=== PATIENT | male | born 1980 | race Caucasian/White ===

== ENCOUNTER 2016-12-06 13:23 | Emergency (ER) | payer BC ==
[2016-12-06 15:27] VITALS: BP 201/113
[2016-12-06] MEDS ORDERED: Cyclobenzaprine 10 MG Tab PO ONE (17:08)
[2016-12-06] MEDS ORDERED: Naproxen 500 MG Tab PO ONE (17:08)
--- NOTE | 2016-12-08 16:13 | EDM.PDOC ---
Scribed by Josiane Renteria 12/06/16 [id number] for Morro Lo MD ED HPI Trauma - General Chief Complaint: Upper Extremity Injury/Pain Stated Complaint: TORE RIGHT BICEP ? Time Seen by Provider: 12/06/16 13:36 Source: Reports: Patient, RN, RN notes reviewed History Limitations: Reports: No limitations - History of Present Illness INITIAL COMMENTS - FREE TEXT/NARRATIVE: Around 12:30 this afternoon he was playing outside and reached up and tried to grab someones shirt and he heard a pop. Pain is minimal 1-2/10. He did try Ibuprofen, which helped minimally. Pain is located in the right biceps area and pain is exacerbated when lifting straight. The family member noted the right bicep area looks different than the left. Symptom Onset Date: 12/06/16 Occurred When: just prior to arrival Occurred Where: home Severity: mild Pain/Injury Location: Reports: upper extremity, right Consciousness: Reports: no loss of consciousness Associated Symptoms: Reports: no other symptoms Allergies/ADRs: Allergies No Known Allergies Allergy (Verified 12/06/16 15:27) Home Medications: Ambulatory Orders Lisinopril/Hydrochlorothiazide [Lisinopril-Hctz 10-12.5 mg Tab] 1 each PO DAILY 08/07/13 [Confirmed 12/06/16] amLODIPine [Norvasc] 5 mg PO DAILY 09/26/15 [Confirmed 12/06/16] metFORMIN HCl [Metformin HCl] 1 mg PO DAILY 09/26/15 [Confirmed 12/06/16] Past Medical History Cardiovascular History: Reports: Hypertension Respiratory History: Reports: None Gastrointestinal History: Reports: None Genitourinary History: Reports: None Endocrine/Metabolic History: Reports: Diabetes, type II Immunologic History: Reports: None - Infectious Disease History Infectious Disease History: Reports: None - Past Surgical History HEENT Surgical History: Reports: Tonsillectomy Musculoskeletal Surgical History: Reports: Other (see below) Other Musculoskeletal Surgeries/Procedures:: left knee pain for past week. Worse today Social & Family History - Family History Family Medical History: Noncontributory - Tobacco Use Smoking Status *Q: Never Smoker Years of Tobacco use: 10 Used Tobacco, but Quit: Yes Month Tobacco Last Used: July 2005 Second Hand Smoke Exposure: No - Recreational Drug Use Recreational Drug Use: No - Living Situation & Occupation Living situation: Reports: , with family Occupation: employed Review of Systems - Review of Systems Review Of Systems: ROS reveals no pertinent complaints other than HPI. Trauma Exam - Physical Exam Exam: See Below Exam Limited By: No limitations Head: Reports: atraumatic, normocephalic Eyes: bilateral eye: normal inspection Ears: Reports: normal external exam, normal canal, hearing grossly normal, normal TMs Nose: Reports: normal inspection, normal mucousa, no blood Throat/Mouth: Reports: Normal inspection, Normal lips, Normal teeth, Normal gums , Normal oropharynx, Normal voice, No airway compromise Neck: Reports: non-tender, full range of motion, normal alignment, normal inspection Respiratory Exam: Reports: no respiratory distress, lungs clear, normal breath sounds Cardiovascular: Reports: normal peripheral pulses, regular rate, rhythm, no edema, no gallop, no JVD, no murmur, no rub GI/Abdominal: Reports: normal bowel sounds, soft, non tender, no organomegaly, no distention, no abnormal bruit, no mass Back: Reports: full range of motion, normal inspection, non-tender Extremities: Reports: pain with movement (pain wtih flexion of the arm with resistance. ), other (depression noted on right upper arm distal to the humerus area. ) Neurologic: Reports: telephone interviewer II-XII nml as tested, no motor/sensory deficits, alert , normal mood/affect, oriented x 3 Skin: Reports: Normal color, Warm/dry Course - Vital Signs Last Recorded V/S: Last Vital Signs Temp 36.8 C 12/06/16 14:00 Pulse 84 12/06/16 14:00 Resp 18 12/06/16 14:00 BP 201/113 H 12/06/16 14:00 Pulse Ox 98 12/06/16 14:00 - Orders/Labs/Meds Meds: Medications Discontinued Medications Generic Name Dose Route Start Last Admin Trade Name Freq PRN Reason Stop Dose Admin Cyclobenzaprine HCl 10 mg 12/06/16 17:08 12/06/16 17:15 Flexeril PO 12/06/16 17:09 10 mg ONETIME ONE Administration Naproxen 500 mg 12/06/16 17:08 12/06/16 17:15 Naprosyn PO 12/06/16 17:09 500 mg ONETIME ONE Administration - Radiology Interpretation Free Text/Narrative:: Right humerus: No acute findings. Uncomplicated humeral hardware per rad report. Departure - Departure Time of Disposition: 17:15 Disposition: Home, Self-Care 01 Condition: good Clinical Impression: Biceps tendon tear Instructions: Biceps Tendon Disruption (Proximal) With [facility] Forms: ED Department Discharge Additional Instructions: Follow up with Dr. Cantor later this week for recheck and possible further work up. Naprosyn 500mg. Flexeril 10mg. Continue sling. Activity as tolerated. Work note given to excuse him for one week. I have read and agree with the documentation that has been completed regarding this visit. By signing this record, I attest that the documentation was completed in my physical presence and is an accurate record of the encounter.
== END 2016-12-06 17:22 | disposition home or self-care (01) ==
LOC: DL.ED 13:23
DX: S46.211A Strain of muscle, fascia and tendon of other parts of biceps, right arm, initial encounter (principal); I10 Essential (primary) hypertension; E11.9 Type 2 diabetes mellitus without complications; Z79.84 Long term (current) use of oral hypoglycemic drugs; Z79.899 Other long term (current) drug therapy; Z98.890 Other specified postprocedural states; X58.XXXA Exposure to other specified factors, initial encounter; Y92.009 Unspecified place in unspecified non-institutional (private) residence as the place of occurrence of the external cause
CPT/HCPCS: 73060; 99283; A9270

== ENCOUNTER 2018-07-29 00:26 | Emergency (ER) | payer BC, OTHER ==
[2018-07-29] MEDS ORDERED: Lidocaine 1% 30 ML SDV INJECT ONE (00:48)
[2018-07-29] MEDS ORDERED: Bacitracin Oint 1 GM U/D Packet TOP ONE (00:49)
[2018-07-29] MEDS ORDERED: cloNIDine 0.1 MG Tab PO ONE (00:54)
[2018-07-29] MEDS ORDERED: Diphtheria,Pertussis(Acell),Tetanus Vaccine 0.5 ML SDV IM ONE (00:55)
--- NOTE | 2018-07-29 01:26 | EDM.PDOC ---
ED HPI GENERAL MEDICAL PROBLEM - General Chief Complaint: Upper Extremity Injury/Pain Stated Complaint: PIECE OF STEEL IN IZABELLAUB [id number] Time Seen by Provider: 07/29/18 00:50 Source of Information: Reports: Patient, RN, RN Notes Reviewed History Limitations: Reports: No Limitations - History of Present Illness INITIAL COMMENTS - FREE TEXT/NARRATIVE: Pt to ER with c/o steel sliver in the pad of the left thumb. Patient states he was working on a bucket on a skid steer at work when he got a piece of steel stuck in the thumb. He states he was able to get part of it out but there is still a piece deep in the finger that he cannot get at. Patient states he is unsure of when his last Tetanus vaccination was but states "it was a long time ago". Upon arrival pt BP is elevated as well. Patient states he did not take his Lisinopril yesterday. Onset: Today, Sudden Left 1-Thumb Pain Score (Numeric/FACES): 3 - Related Data Allergies Allergy/AdvReac Type Severity Reaction Status Date / Time No Known Allergies Allergy Verified 07/29/18 00:43 Home Meds: Home Meds Lisinopril/Hydrochlorothiazide [Lisinopril-Hctz 10-12.5 mg Tab] 1 each PO DAILY 08/07/13 [History] amLODIPine [Norvasc] 5 mg PO DAILY 09/26/15 [History] metFORMIN HCl [Metformin HCl] 1 mg PO DAILY 09/26/15 [History] Past Medical History Cardiovascular History: Reports: Hypertension Respiratory History: Reports: None Gastrointestinal History: Reports: None Genitourinary History: Reports: None Endocrine/Metabolic History: Reports: Diabetes, Type II Immunologic History: Reports: None - Infectious Disease History Infectious Disease History: Reports: None - Past Surgical History HEENT Surgical History: Reports: Adenoidectomy, Tonsillectomy Musculoskeletal Surgical History: Reports: Other (See Below) Other Musculoskeletal Surgeries/Procedures:: right torn bicep repair and fx repair. Social & Family History - Family History Family Medical History: Noncontributory - Tobacco Use Smoking Status *Q: Never Smoker - Caffeine Use Caffeine Use: Reports: Soda - Recreational Drug Use Recreational Drug Use: No - Living Situation & Occupation Living situation: Reports: , with Family Occupation: Employed Review of Systems - Review of Systems Review Of Systems: ROS reveals no pertinent complaints other than HPI. ED EXAM, GENERAL - Physical Exam Exam: See Below Exam Limited By: No Limitations General Appearance: Alert, WD/WN, No Apparent Distress Eye Exam: Bilateral Eye: EOMI, Normal Inspection Ears: Normal External Exam, Hearing Grossly Normal Nose: Normal Inspection Throat/Mouth: Normal Inspection, Normal Voice, No Airway Compromise Head: Atraumatic, Normocephalic Neck: Normal Inspection, Supple, Non-Tender, Full Range of Motion Respiratory/Chest: No Respiratory Distress, Lungs Clear, Normal Breath Sounds, No Accessory Muscle Use, Chest Non-Tender Cardiovascular: Normal Peripheral Pulses, Regular Rate, Rhythm, No Edema, No Gallop, No JVD, No Murmur, No Rub Peripheral Pulses: 2+: Radial (L), Radial (R) GI/Abdominal: Normal Bowel Sounds, Soft, Non-Tender (Male) Exam: Deferred Rectal (Males) Exam: Deferred Back Exam: Normal Inspection, Full Range of Motion, NT Extremities: Normal Inspection, Normal Range of Motion, Non-Tender, Normal Capillary Refill, No Pedal Edema Neurological: Alert, Oriented, CN II-XII Intact, Normal Cognition, Normal Gait, Normal Reflexes, No Motor/Sensory Deficits Psychiatric: Normal Affect, Normal Mood Skin Exam: Warm, Dry, Normal Color, No Rash, Other (Open area to the pad of the left thumb where the patient has been digging to get sliver out ) Lymphatic: No Adenopathy ED TRAUMA EXTREMITY PROCEDURES - Foreign Body Removal Indication:: Steel sliver in the left thumb Consent Obtained: Patient Performing Doctor:: Caryl Nguyen Anesthesia Type: Local Complications:: No Course - Vital Signs Last Recorded V/S: Last Vital Signs Temp 98.4 F 07/29/18 00:43 Pulse 102 H 07/29/18 00:43 Resp 18 07/29/18 00:43 BP 172/95 H 07/29/18 02:10 Pulse Ox 98 07/29/18 00:43 - Orders/Labs/Meds Orders: Active Orders 24 hr Category Date Time Status Vaccines to be Administered [RC] PER UNIT ROUTINE Care 07/29/18 00:55 Active Fingers Thumb Lt FA [CR] Urgent Exams 07/29/18 00:36 Taken Meds: Medications Discontinued Medications Generic Name Dose Route Start Last Admin Trade Name Freq PRN Reason Stop Dose Admin Bacitracin 1 dose 12/27/18 00:49 07/29/18 01:07 Bacitracin Oint 1 Gm TOP 07/29/18 00:50 1 dose ONETIME ONE Administration Clonidine HCl 0.1 mg 07/29/18 00:54 07/29/18 01:06 Catapres PO 07/29/18 00:55 0.1 mg ONETIME ONE Administration Diphtheria/Tetanus/Acell Pertussis 0.5 ml 07/29/18 00:55 07/29/18 01:03 Adacel IM 07/29/18 00:56 0.5 ml .ONCE ONE Administration Lidocaine HCl 30 ml 07/29/18 00:48 07/29/18 01:02 Xylocaine-Mpf 1% INJECT 07/29/18 00:49 30 ml ONETIME ONE Administration Departure - Departure Time of Disposition: 02:15 Disposition: Home, Self-Care 01 Condition: Fair Clinical Impression: Sliver Hypertension Qualifiers: Hypertension type: unspecified Qualified Code(s): I10 - Essential (primary) hypertension - Discharge Information *PRESCRIPTION DRUG MONITORING PROGRAM REVIEWED*: No *COPY OF PRESCRIPTION DRUG MONITORING REPORT IN PATIENT NICKY: No Instructions: Hypertension, [id number] Referrals: Regina Love MD [Primary Care Provider] - Forms: ED Department Discharge Additional Instructions: Keep thumb covered with bandaid and clean Take medications as prescribed Follow up with your primary care facility - My Orders Last 24 Hours: My Active Orders 07/29/18 00:36 Fingers Thumb Lt FA [CR] Urgent 07/29/18 00:55 Vaccines to be Administered [RC] PER UNIT ROUTINE - Assessment/Plan Last 24 Hours: My Active Orders 07/29/18 00:36 Fingers Thumb Lt FA [CR] Urgent 07/29/18 00:55 Vaccines to be Administered [RC] PER UNIT ROUTINE
[2018-07-29 02:11] VITALS: BP 172/95
== END 2018-07-29 02:15 | disposition home or self-care (01) ==
LOC: DL.ED 00:26
DX: S60.352A Superficial foreign body of left thumb, initial encounter (principal); I10 Essential (primary) hypertension; E11.9 Type 2 diabetes mellitus without complications; Z79.84 Long term (current) use of oral hypoglycemic drugs; W45.8XXA Other foreign body or object entering through skin, initial encounter; Z23 Encounter for immunization; F17.290 Nicotine dependence, other tobacco product, uncomplicated
CPT/HCPCS: 73140; 90471; 90715; 99283; A9270

== ENCOUNTER 2020-04-05 17:15 | Emergency (ER) | payer BC ==
[2020-04-05] MEDS ORDERED: Ondansetron 4 MG Tab.DIS PO ONE (17:16)
[2020-04-05] MEDS ORDERED: Ondansetron 4 MG/2 ML SDV IV ONE (17:34)
[2020-04-05] MEDS ORDERED: Sodium Chloride 0.9% 10 ML Syringe FLUSH PRN (17:34)
[2020-04-05] MEDS ORDERED: Ketorolac 30 MG/ML SDV IVPUSH ONE (17:34)
[2020-04-05] MEDS ORDERED: Sodium Chloride 0.9% 1,000 ML IV ONE (17:34)
[2020-04-05 17:52] VITALS: BP 173/94; PULSE 117
--- NOTE | 2020-04-05 18:13 | EDM.PDOC ---
ED HPI GENERAL MEDICAL PROBLEM - General Chief Complaint: Gastrointestinal Problem Stated Complaint: NAUSEA,HEADACHE,VOMITING,BODY ACHE [id number] Time Seen by Provider: 04/05/20 17:45 Source of Information: Reports: Patient, RN, RN Notes Reviewed History Limitations: Reports: No Limitations - History of Present Illness INITIAL COMMENTS - FREE TEXT/NARRATIVE: Pt presents to ER by POV with c/o cough, N/V/D, abdominal pain, chills, muscle aches, since 0100HRS this morning. Has traveled to [facility] this past week and is scared that he may have COVID. Denies shortness of breath, chest pain, or difficulty breathing. Onset: Today Onset Date: 04/05/20 Onset Time: 01:00 Duration: Constant Location: Reports: Abdomen, Generalized Quality: Reports: Ache Severity: Moderate Improves with: Reports: None Worsens with: Reports: None Context: Reports: Sick Contact (Unknown) Associated Symptoms: Reports: No Other Symptoms Middle Abdominal Pain Score (Numeric/FACES): 4 - Related Data Allergies Allergy/AdvReac Type Severity Reaction Status Date / Time No Known Allergies Allergy Verified 04/05/20 17:37 Home Meds: Home Meds Lisinopril/Hydrochlorothiazide [Lisinopril-Hctz 10-12.5 mg Tab] 1 each PO DAILY 08/07/13 [History] amLODIPine [Norvasc] 10 mg PO BEDTIME 09/26/15 [History] metFORMIN HCl [Metformin HCl] 1,000 mg PO BID 09/26/15 [History] Glimepiride 2 mg PO DAILY 04/05/20 [History] atorvaSTATin [Lipitor] 20 mg PO DAILY 04/05/20 [History] Past Medical History Cardiovascular History: Reports: High Cholesterol, Hypertension Respiratory History: Reports: None Gastrointestinal History: Reports: None Genitourinary History: Reports: None Neurological History: Reports: None Psychiatric History: Reports: None Endocrine/Metabolic History: Reports: Diabetes, Type II, Obesity/BMI 30+ Hematologic History: Reports: None Immunologic History: Reports: None Oncologic (Cancer) History: Reports: None Dermatologic History: Reports: None - Infectious Disease History Infectious Disease History: Reports: Chicken Pox - Past Surgical History Head Surgeries/Procedures: Reports: None HEENT Surgical History: Reports: Adenoidectomy, Tonsillectomy Musculoskeletal Surgical History: Reports: Other (See Below) Other Musculoskeletal Surgeries/Procedures:: right torn bicep repair and fx repair. Social & Family History - Family History Family Medical History: Noncontributory - Tobacco Use Smoking Status *Q: Never Smoker Second Hand Smoke Exposure: No - Caffeine Use Caffeine Use: Reports: Coffee, Soda - Recreational Drug Use Recreational Drug Use: No - Living Situation & Occupation Living situation: Reports: , with Family Occupation: Employed ED ROS GENERAL - Review of Systems Review Of Systems: Comprehensive ROS is negative, except as noted in HPI. ED EXAM, GI/ABD - Physical Exam Exam: See Below Exam Limited By: No Limitations General Appearance: Alert, WD/WN, No Apparent Distress, Anxious Eyes: Bilateral: Normal Appearance Nose: Normal Inspection, Normal Mucosa, No Blood Throat/Mouth: Normal Inspection, Normal Lips, Normal Teeth, Normal Gums, Normal Oropharynx, Normal Voice, No Airway Compromise Head: Atraumatic, Normocephalic Neck: Normal Inspection, Supple, Non-Tender, Full Range of Motion Respiratory/Chest: No Respiratory Distress, Lungs Clear, Normal Breath Sounds, No Accessory Muscle Use, Chest Non-Tender Cardiovascular: Regular Rate, Rhythm, No Edema, Tachycardia GI/Abdominal Exam: Normal Bowel Sounds, Soft, Tender (Mild, generalized). No: Guarding, Rigid, Rebound (Male) Exam: Deferred Rectal (Males) Exam: Deferred Course - Vital Signs Last Recorded V/S: Last Vital Signs Temp 99.3 F 04/05/20 17:43 Pulse 117 H 04/05/20 17:43 Resp 24 H 04/05/20 17:43 BP 173/94 H 04/05/20 17:43 Pulse Ox 96 04/05/20 17:43 - Orders/Labs/Meds Orders: Active Orders 24 hr Category Date Time Status Peripheral IV Care [RC] . DIRECTED Care 04/05/20 17:34 Active CORONAVIRUS COVID-19 PCR PHL Routine Lab 04/05/20 17:52 Ordered CULTURE STREP A CONFIRMATION [RM] Stat Lab 04/05/20 17:35 Results STREP SCRN A RAPID W CULT CONF [RM] Stat Lab 04/05/20 17:35 Results Sodium Chloride 0.9% [Saline Flush] Med 04/05/20 17:34 Active 10 ml FLUSH ASDIRECTED PRN Isolation [COMM] Routine Oth 04/05/20 17:33 Active Peripheral IV Insertion Adult [OM.PC] Stat Oth 04/05/20 17:33 Ordered Medication Orders Sodium Chloride (Saline Flush) 10 ml FLUSH ASDIRECTED PRN PRN Reason: Keep Vein Open Last Admin: 04/05/20 18:08 Dose: 10 ml Documented by: RANDALL Labs: Laboratory Tests 04/05/20 04/05/20 04/05/20 Range/Units 17:42 17:42 17:42 WBC 14.4 H (5.0-10.0) 10^3/uL RBC 5.95 (4.6-6.2) 10^6/uL Hgb 17.8 (14.0-18.0) g/dL Hct 48.5 (40.0-54.0) % MCV 81.5 (80-100) fL MCH 29.9 (27.0-34.0) pg MCHC 36.7 H (33.0-35.0) g/dL Plt Count 257 (150-450) 10^3/uL Neut % (Auto) 89.0 H (42.2-75.2) % Lymph % (Auto) 6.2 L (20.5-50.1) % Crockett % (Auto) 4.6 (2-8) % Eos % (Auto) 0.1 L (1.0-3.0) % Baso % (Auto) 0.1 (0.0-1.0) % D-Dimer, Quantitative 117 (0-400) ng/mL Sodium 138 (136-145) mmol/L Potassium 3.3 L (3.5-5.1) mmol/L Chloride 101 (98-107) mmol/L Carbon Dioxide 24 (21-32) mmol/L Anion Gap 16.3 H (7-13) mEq/L BUN 12 (7-18) mg/dL Creatinine 1.09 (0.70-1.30) mg/dL Est Cr Clr Drug Dosing 89.19 mL/min Estimated GFR (MDRD) > 60 BUN/Creatinine Ratio 11.0 (No establ ref range) Glucose 285 H (74-99) mg/dL Lactic Acid (0.4-2.0) mmol/L Calcium 8.3 L (8.5-10.1) mg/dL Total Bilirubin 1.2 H (0.2-1.0) mg/dL AST 16 (15-37) U/L ALT 43 (16-63) U/L Alkaline Phosphatase 101 (46-116) U/L Total Protein 7.0 (6.4-8.2) g/dL Albumin 3.6 (3.4-5.0) g/dL Globulin 3.4 Albumin/Globulin Ratio 1.1 Amylase 18 L (25-115) U/L Lipase 71 L (73-393) U/L 04/05/20 Range/Units 17:42 WBC (5.0-10.0) 10^3/uL RBC (4.6-6.2) 10^6/uL Hgb (14.0-18.0) g/dL Hct (40.0-54.0) % MCV (80-100) fL MCH (27.0-34.0) pg MCHC (33.0-35.0) g/dL Plt Count (150-450) 10^3/uL Neut % (Auto) (42.2-75.2) % Lymph % (Auto) (20.5-50.1) % Crockett % (Auto) (2-8) % Eos % (Auto) (1.0-3.0) % Baso % (Auto) (0.0-1.0) % D-Dimer, Quantitative (0-400) ng/mL Sodium (136-145) mmol/L Potassium (3.5-5.1) mmol/L Chloride (98-107) mmol/L Carbon Dioxide (21-32) mmol/L Anion Gap (7-13) mEq/L BUN (7-18) mg/dL Creatinine (0.70-1.30) mg/dL Est Cr Clr Drug Dosing mL/min Estimated GFR (MDRD) BUN/Creatinine Ratio (No establ ref range) Glucose (74-99) mg/dL Lactic Acid 2.4 H* (0.4-2.0) mmol/L Calcium (8.5-10.1) mg/dL Total Bilirubin (0.2-1.0) mg/dL AST (15-37) U/L ALT (16-63) U/L Alkaline Phosphatase (46-116) U/L Total Protein (6.4-8.2) g/dL Albumin (3.4-5.0) g/dL Globulin Albumin/Globulin Ratio Amylase (25-115) U/L Lipase (73-393) U/L Meds: Medications Generic Name Dose Route Start Last Admin Trade Name Freq PRN Reason Stop Dose Admin Sodium Chloride 10 ml 04/05/20 17:34 04/05/20 18:08 Saline Flush FLUSH 10 ml ASDIRECTED PRN Administration Keep Vein Open Discontinued Medications Generic Name Dose Route Start Last Admin Trade Name Freq PRN Reason Stop Dose Admin Sodium Chloride 1,000 mls @ 999 mls/hr 04/05/20 17:34 04/05/20 18:06 Normal Saline IV 04/05/20 18:34 999 mls/hr .BOLUS ONE Administration Ketorolac Tromethamine 30 mg 04/05/20 17:34 04/05/20 18:06 Toradol IVPUSH 04/05/20 17:35 30 mg ONETIME ONE Administration Ondansetron HCl 4 mg 04/05/20 17:34 04/05/20 18:08 Zofran IV 04/05/20 17:35 4 mg ONETIME ONE Administration Departure - Departure Time of Disposition: 19:18 Disposition: Home, Self-Care 01 Condition: Good Clinical Impression: Suspected COVID-19 virus infection Nausea & vomiting Qualifiers: Vomiting type: unspecified Vomiting Intractability: non-intractable Qualified Code(s): R11.2 - Nausea with vomiting, unspecified - Discharge Information *PRESCRIPTION DRUG MONITORING PROGRAM REVIEWED*: Not Applicable *COPY OF PRESCRIPTION DRUG MONITORING REPORT IN PATIENT NICKY: Not Applicable Instructions: Prevent the Spread of COVID-19 if You Are Sick - CDC, COVID-19, Nausea and Vomiting, Adult Forms: ED Department Discharge Additional Instructions: Rx: Zofran 4mg Drink plenty of water. Self quarantine at home until your COVID test results are available, and for 14 days if confirmed COVID positive. Return to ER if your abdominal pain moves to the far right lower abdomen. Call 911 if you become short of breath or have difficulty breathing. Sepsis Event Note (ED) - Evaluation Sepsis Screening Result: No Definite Risk - Focused Exam Vital Signs: Vital Signs Temp Pulse Resp BP Pulse Ox 04/05/20 17:43 99.3 F 117 H 24 H 173/94 H 96 - My Orders Last 24 Hours: My Active Orders 04/05/20 17:33 Isolation [COMM] Routine Peripheral IV Insertion Adult [OM.PC] Stat 04/05/20 17:34 Peripheral IV Care [RC] . DIRECTED Sodium Chloride 0.9% [Saline Flush] 10 ml FLUSH ASDIRECTED PRN 04/05/20 17:35 CULTURE STREP A CONFIRMATION [RM] Stat STREP SCRN A RAPID W CULT CONF [RM] Stat 04/05/20 17:52 CORONAVIRUS COVID-19 PCR PHL Routine - Assessment/Plan Last 24 Hours: My Active Orders 04/05/20 17:33 Isolation [COMM] Routine Peripheral IV Insertion Adult [OM.PC] Stat 04/05/20 17:34 Peripheral IV Care [RC] . DIRECTED Sodium Chloride 0.9% [Saline Flush] 10 ml FLUSH ASDIRECTED PRN 04/05/20 17:35 CULTURE STREP A CONFIRMATION [RM] Stat STREP SCRN A RAPID W CULT CONF [RM] Stat 04/05/20 17:52 CORONAVIRUS COVID-19 PCR PHL Routine
[2020-04-05 18:22] LABS: ANION GAP 16.3 mEq/L (7-13); CHLORIDE,CL 101 mmol/L (98-107); SODIUM,NA 138 mmol/L (136-145)
[2020-04-05] MEDS ORDERED: Ondansetron 4 MG Tab.DIS ONE (19:18)
== END 2020-04-05 19:33 | disposition home or self-care (01) ==
LOC: DL.ED 17:15
DX: R11.2 Nausea with vomiting, unspecified (principal); E78.00 Pure hypercholesterolemia, unspecified; I10 Essential (primary) hypertension; E11.9 Type 2 diabetes mellitus without complications; E66.9 Obesity, unspecified; Z68.41 Body mass index [BMI] 40.0-44.9, adult; Z79.84 Long term (current) use of oral hypoglycemic drugs; Z20.828 Contact with and (suspected) exposure to other viral communicable diseases
CPT/HCPCS: 36415; 80053; 82150; 83605; 83690; 85025; 85379; 87081; 87430; 87804; 96361; 96374; 96375; 99284-25; A9270-GY; J1885; J2405; J7030; U0002

== ENCOUNTER 2021-05-18 16:05 | Emergency (ER) | payer BC ==
--- NOTE | 2021-05-18 16:23 | EDM.PDOC ---
ED HPI GENERAL MEDICAL PROBLEM - General Stated Complaint: 98.6 TEMP, COUGH, FATIGUE, VOMITING Time Seen by Provider: 05/18/21 16:22 Source of Information: Reports: Patient, RN, RN Notes Reviewed - History of Present Illness INITIAL COMMENTS - FREE TEXT/NARRATIVE: Sid is a 40 y/o male who presents to the ED via personal vehicle with complaints of fever, muscle aches, shortness of breath, and cough. The patient states his symptoms began five days ago and have progressively worsened in that time. Additionally, he notes nausea with vomiting. He has taken transient doses of acetaminophen and ibuprofen which have provided mild alleviation in symptoms. His TMax was 102.8 two days ago. He denies dizziness, vision changes, chest pain/pressure, palpitations, abdominal pain, diarrhea, and constipation. He denies tobacco, alcohol, or recreational drug use. - Related Data Allergies Allergy/AdvReac Type Severity Reaction Status Date / Time No Known Allergies Allergy Verified 05/18/21 16:31 Home Meds: Home Meds amLODIPine [Norvasc] 10 mg PO BEDTIME 09/26/15 [History] metFORMIN HCl [Metformin HCl] 1,000 mg PO BID 09/26/15 [History] atorvaSTATin [Lipitor] 20 mg PO DAILY 04/05/20 [History] Ascorbic Acid [Vitamin C with Sophy Hips] 1,000 mg PO DAILY 05/20/21 [History] Canagliflozin [Invokana] 300 mg PO DAILY 05/20/21 [History] Glimepiride 4 mg PO WITHBREAKFAST 05/20/21 [History] dexAMETHasone [Decadron] 6 mg PO DAILY 05/20/21 [History] Past Medical History Cardiovascular History: Reports: High Cholesterol, Hypertension Respiratory History: Reports: None Gastrointestinal History: Reports: None Genitourinary History: Reports: None Neurological History: Reports: None Psychiatric History: Reports: None Endocrine/Metabolic History: Reports: Diabetes, Type II, Obesity/BMI 30+ Hematologic History: Reports: None Immunologic History: Reports: None Oncologic (Cancer) History: Reports: None Dermatologic History: Reports: None - Infectious Disease History Infectious Disease History: Reports: Chicken Pox - Past Surgical History Head Surgeries/Procedures: Reports: None HEENT Surgical History: Reports: Adenoidectomy, Tonsillectomy Musculoskeletal Surgical History: Reports: Other (See Below) Other Musculoskeletal Surgeries/Procedures:: right torn bicep repair and fx repair. Social & Family History - Family History Family Medical History: No Pertinent Family History - Caffeine Use Caffeine Use: Reports: Coffee, Soda - Living Situation & Occupation Living situation: Reports: , with Family Occupation: Employed ED ROS GENERAL - Review of Systems Review Of Systems: Comprehensive ROS is negative, except as noted in HPI. ED EXAM, GENERAL - Physical Exam Exam: See Below Exam Limited By: No Limitations General Appearance: Alert, No Apparent Distress, Other (Ill-appearing middle- aged male) Eye Exam: Bilateral Eye: EOMI, Normal Inspection, PERRL (3mm) Ears: Normal External Exam, Normal Canal, Hearing Grossly Normal, Normal TMs Ear Exam: Bilateral Ear: Auricle Normal, Canal Normal, TM normal Nose: Normal Inspection, Normal Mucosa, No Blood Throat/Mouth: Normal Inspection, Normal Oropharynx, Normal Voice, No Airway Compromise Head: Atraumatic, Normocephalic Neck: Normal Inspection, Supple, Non-Tender, Full Range of Motion Respiratory/Chest: No Respiratory Distress, No Accessory Muscle Use, Chest Non- Tender, Decreased Breath Sounds, Rhonchi. No: Crackles, Rales, Wheezing, Stridor Cardiovascular: Normal Peripheral Pulses, Regular Rate, Rhythm, No Edema, No Gallop, No JVD, No Murmur, No Rub Peripheral Pulses: 2+: Radial (L), Radial (R), Dorsalis Pedis (L), Dorsalis Pedis (R) GI/Abdominal: Normal Bowel Sounds, Soft, Non-Tender, No Distention, No Abnormal Bruit, No Mass, Pelvis Stable (Male) Exam: Deferred Rectal (Males) Exam: Deferred Back Exam: Normal Inspection, Full Range of Motion Extremities: Normal Inspection, Normal Range of Motion, Non-Tender, No Pedal Edema, Normal Capillary Refill Neurological: Alert, Oriented, CN II-XII Intact, Normal Cognition, Normal Gait, No Motor/Sensory Deficits Psychiatric: Normal Affect, Normal Mood Skin Exam: Warm, Dry, Intact, Normal Color, No Rash. No: Cyanosis, Jaundice, Mottled, Pallor Lymphatic: No Adenopathy Course - Vital Signs Last Recorded V/S: Last Vital Signs Temp 100.4 F 05/18/21 16:32 Pulse 100 05/18/21 16:32 Resp 24 H 05/18/21 16:32 BP 137/89 05/18/21 16:32 Pulse Ox 97 05/18/21 16:32 - Orders/Labs/Meds Labs: Laboratory Tests 05/18/21 05/18/21 05/18/21 Range/Units 16:14 17:40 17:40 WBC 7.3 (5.0-10.0) 10^3/uL RBC 5.94 (4.6-6.2) 10^6/uL Hgb 17.9 (14.0-18.0) g/dL Hct 49.9 (40.0-54.0) % MCV 84.0 (80-100) fL MCH 30.1 (27.0-34.0) pg MCHC 35.9 H (33.0-35.0) g/dL Plt Count 166 D (150-450) 10^3/uL Neut % (Auto) 72.7 (42.2-75.2) % Lymph % (Auto) 19.3 L (20.5-50.1) % [place] % (Auto) 7.7 (2-8) % Eos % (Auto) 0.0 L (1.0-3.0) % Baso % (Auto) 0.3 (0.0-1.0) % Sodium 138 (136-145) mmol/L Potassium 3.2 L (3.5-5.1) mmol/L Chloride 98 (98-107) mmol/L Carbon Dioxide 29 (21-32) mmol/L Anion Gap 14.2 H (7-13) mEq/L BUN 21 H (7-18) mg/dL Creatinine 1.19 (0.70-1.30) mg/dL Est Cr Clr Drug Dosing TNP Estimated GFR (MDRD) > 60 BUN/Creatinine Ratio 17.6 (No establ ref range) Glucose 200 H (70-99) mg/dL Lactic Acid (0.4-2.0) mmol/L Calcium 7.6 L (8.5-10.1) mg/dL Total Bilirubin 0.7 (0.2-1.0) mg/dL AST 18 (15-37) U/L ALT 64 H (16-63) U/L Alkaline Phosphatase 92 (46-116) U/L C-Reactive Protein 10.1 H (0.0-0.9) mg/dL Total Protein 7.3 (6.4-8.2) g/dL Albumin 3.5 (3.4-5.0) g/dL Globulin 3.8 Albumin/Globulin Ratio 0.9 SARS-CoV-2 RNA (RANJIT) Positive H (NEGATIVE) 05/18/21 Range/Units 17:40 WBC (5.0-10.0) 10^3/uL RBC (4.6-6.2) 10^6/uL Hgb (14.0-18.0) g/dL Hct (40.0-54.0) % MCV (80-100) fL MCH (27.0-34.0) pg MCHC (33.0-35.0) g/dL Plt Count (150-450) 10^3/uL Neut % (Auto) (42.2-75.2) % Lymph % (Auto) (20.5-50.1) % [place] % (Auto) (2-8) % Eos % (Auto) (1.0-3.0) % Baso % (Auto) (0.0-1.0) % Sodium (136-145) mmol/L Potassium (3.5-5.1) mmol/L Chloride (98-107) mmol/L Carbon Dioxide (21-32) mmol/L Anion Gap (7-13) mEq/L BUN (7-18) mg/dL Creatinine (0.70-1.30) mg/dL Est Cr Clr Drug Dosing Estimated GFR (MDRD) BUN/Creatinine Ratio (No establ ref range) Glucose (70-99) mg/dL Lactic Acid 1.9 (0.4-2.0) mmol/L Calcium (8.5-10.1) mg/dL Total Bilirubin (0.2-1.0) mg/dL AST (15-37) U/L ALT (16-63) U/L Alkaline Phosphatase (46-116) U/L C-Reactive Protein (0.0-0.9) mg/dL Total Protein (6.4-8.2) g/dL Albumin (3.4-5.0) g/dL Globulin Albumin/Globulin Ratio SARS-CoV-2 RNA (RANJIT) (NEGATIVE) Meds: Medications Discontinued Medications Generic Name Dose Route Start Last Admin Trade Name Freq PRN Reason Stop Dose Admin Dexamethasone 6 mg 05/18/21 19:02 05/18/21 19:31 Dexamethasone 4 Mg/Ml Sdv IVPUSH 05/18/21 19:03 6 mg ONETIME ONE Administration Ondansetron HCl 4 mg 05/18/21 19:09 05/18/21 19:31 Ondansetron 4 Mg/2 Ml Sdv IVPUSH 05/18/21 19:10 4 mg ONETIME ONE Administration - Radiology Interpretation Free Text/Narrative:: [facility] Final Radiology Report Call: [phone] assistance Online chat: [email or web address] Name: SID ANDRADE Age: 40Years M Date: 05/18/2021 SSN: -- : [id number] Study: CR CHEST 1V FRONTAL Requesting Physician: Meenu Honeycutt Images: 1 Addl Studies: Provided Clinical History: COVID +; Hypoxic Contrast: Contrast Medium: Contrast Amount: Contrast Method: CONFIDENTIALITY STATEMENT This report is intended only for use by the referring physician, and only in accordance with law. If you received this in error, call [phone]. Page 1 of 1 PROCEDURE INFORMATION: Exam: XR Chest Exam date and time: 05/18/2021 5:29 PM Age: 40 years old Clinical indication: Shortness of breath; Additional info: Covid +; Hypoxic TECHNIQUE: Imaging protocol: XR of the chest. Views: 1 view. COMPARISON: No relevant prior studies available. FINDINGS: Lungs: Bilateral patchy airspace opacities. Pleural spaces: No pneumothorax. No sizable pleural effusion. Heart/Mediastinum: No cardiomegaly. Bones/joints: Unremarkable. IMPRESSION: Bilateral patchy airspace opacities likely representing pneumonia. Thank you for allowing us to participate in the care of your patient. Dictated and Authenticated by: Apollo Ortiz MD 05/18/2021 6:55 PM Central Time ([place] & [place]) - Re-Assessments/Exams Free Text/Narrative Re-Assessment/Exam: 05/18/21 COVID test sent. Zofran 4mg IVP administered while labs pending. CXR obtained. COVID positive; CXR revelas bilateral patchy infiltrates. WBC WNL. Dexamethasone 6mg IVP administered. Patient weaned off of O2, currently at 94% on RA. Findings of examination, lab work, and imaging reviewed with patient. Will treat COVID pneumonia with dexamethasone 6mg PO. Supportive cares for pneumonia discussed. Patient instructed to follow up with primary care provider regarding todays visit. Red flag signs and symptoms which would warrant immediate reevaluation reviewed. Patient verbalized understanding and agreement with the plan of care. Departure - Departure Time of Disposition: 19:54 Disposition: Home, Self-Care 01 Condition: Fair Clinical Impression: Pneumonia due to COVID-19 virus Hyperglycemia due to type 2 diabetes mellitus Qualifiers: Diabetes mellitus senior care insulin use: without senior care use Qualified Code(s): E11.65 - Type 2 diabetes mellitus with hyperglycemia Hypertension Qualifiers: Hypertension type: unspecified Qualified Code(s): I10 - Essential (primary) hypertension - Discharge Information *PRESCRIPTION DRUG MONITORING PROGRAM REVIEWED*: Not Applicable *COPY OF PRESCRIPTION DRUG MONITORING REPORT IN PATIENT NICKY: Not Applicable Instructions: COVID-19 Frequently Asked Questions, 10 Things You Can Do to Manage Your COVID-19 Symptoms at Home - [facility] (02/15/2021), COVID-19: How to Protect Yourself and Others - [facility], COVID-19: Quarantine vs. Isolation - [facility] (07/19/2020), COVID-19: What to Do If You Are Sick- [facility] (10/17/2020) Referrals: PCP,None [Primary Care Provider] - Forms: ED Department Discharge Additional Instructions: Rx: dexamethasone 6mg (#7) Rx: Zofran ODT 4mg (#20) 1.) Remain in quarantine, per [facility] guidelines, for 14 days from symptom onset, or until 24 hour fever free. 2.) You may take ibuprofen (Advil/Motrin) 400-800mg every six hours, as pain and swelling persist. You may also take acetaminophen (Tylenol) 650-1000mg every six hours, as pain persists. You may stagger these medications so you are taking a dose of either every three hours. 3.) Return to the emergency department with any worsening symptoms despite medications.
[2021-05-18 16:37] VITALS: BP 137/89; PULSE 100
[2021-05-18 18:29] LABS: ANION GAP 14.2 mEq/L (7-13); CHLORIDE,CL 98 mmol/L (98-107); SODIUM,NA 138 mmol/L (136-145)
--- NOTE | 2021-05-18 18:55 | CR ---
PROCEDURE INFORMATION: Exam: XR Chest Exam date and time: 05/18/2021 5:29 PM Age: 40 years old Clinical indication: Shortness of breath; Additional info: Covid +; Hypoxic TECHNIQUE: Imaging protocol: XR of the chest. Views: 1 view. COMPARISON: No relevant prior studies available. FINDINGS: Lungs: Bilateral patchy airspace opacities. Pleural spaces: No pneumothorax. No sizable pleural effusion. Heart/Mediastinum: No cardiomegaly. Bones/joints: Unremarkable. IMPRESSION: Bilateral patchy airspace opacities likely representing pneumonia.
[2021-05-18] MEDS ORDERED: Dexamethasone 4 MG/ML SDV IVPUSH ONE (19:02)
[2021-05-18] MEDS ORDERED: Ondansetron 4 MG/2 ML SDV IVPUSH ONE (19:09)
== END 2021-05-18 20:15 | disposition home or self-care (01) ==
LOC: DL.ED 16:05
DX: U07.1 COVID-19 (principal); J12.82 Pneumonia due to coronavirus disease 2019; E11.65 Type 2 diabetes mellitus with hyperglycemia; I10 Essential (primary) hypertension; E78.00 Pure hypercholesterolemia, unspecified; E66.9 Obesity, unspecified; Z79.84 Long term (current) use of oral hypoglycemic drugs; Z79.899 Other long term (current) drug therapy
CPT/HCPCS: 36415; 71045; 80053; 83605; 85025; 86140; 96374; 96375; 99285-25; J1100; J2405; U0002

== ENCOUNTER 2021-05-19 22:59 | Inpatient (IN) | payer BC ==
--- NOTE | 2021-05-19 23:12 | EDM.PDOC ---
ED HPI GENERAL MEDICAL PROBLEM - General Chief Complaint: Respiratory Problem Stated Complaint: COVID POS Time Seen by Provider: 05/19/21 23:11 Source of Information: Reports: Patient, RN, RN Notes Reviewed History Limitations: Reports: No Limitations - History of Present Illness INITIAL COMMENTS - FREE TEXT/NARRATIVE: Pt is a 40 year old male who presents to ER with c/o SOB and low oxygen saturation at home. Patient was diagnosed with Covid Pneumonia on 05/18/2021. He was started on steroids and was discharged home. Patient has been monitoring his oxygen saturation at home. He states today he was having difficulty breathing, and oxygen saturation was anywhere from 75-85% on room air. Patient does not have oxygen at home. Patient states left sided chest/left lateral rib pain with breathing and coughing. Patient has hx of DMII. Onset: Gradual Chest Pain Score (Numeric/FACES): 8 - Related Data Allergies Allergy/AdvReac Type Severity Reaction Status Date / Time No Known Allergies Allergy Verified 05/18/21 16:31 Home Meds: Home Meds amLODIPine [Norvasc] 10 mg PO BEDTIME 09/26/15 [History] metFORMIN HCl [Metformin HCl] 1,000 mg PO BID 09/26/15 [History] atorvaSTATin [Lipitor] 20 mg PO DAILY 04/05/20 [History] Ascorbic Acid [Vitamin C with Sophy Hips] 1,000 mg PO DAILY 05/20/21 [History] Canagliflozin [Invokana] 300 mg PO DAILY 05/20/21 [History] Glimepiride 4 mg PO WITHBREAKFAST 05/20/21 [History] dexAMETHasone [Decadron] 6 mg PO DAILY 05/20/21 [History] Past Medical History Cardiovascular History: Reports: High Cholesterol, Hypertension Respiratory History: Reports: None Gastrointestinal History: Reports: None Genitourinary History: Reports: None Neurological History: Reports: None Psychiatric History: Reports: None Endocrine/Metabolic History: Reports: Diabetes, Type II, Obesity/BMI 30+ Hematologic History: Reports: None Immunologic History: Reports: None Oncologic (Cancer) History: Reports: None Dermatologic History: Reports: None - Infectious Disease History Infectious Disease History: Reports: Chicken Pox, Novel Coronavirus - Past Surgical History Head Surgeries/Procedures: Reports: None HEENT Surgical History: Reports: Adenoidectomy, Tonsillectomy Musculoskeletal Surgical History: Reports: Other (See Below) Other Musculoskeletal Surgeries/Procedures:: right torn bicep repair and fx repair. Social & Family History - Family History Family Medical History: No Pertinent Family History - Caffeine Use Caffeine Use: Reports: None - Living Situation & Occupation Living situation: Reports: , with Family Occupation: Employed ED ROS GENERAL - Review of Systems Review Of Systems: Comprehensive ROS is negative, except as noted in HPI. ED EXAM, GENERAL - Physical Exam Exam: See Below Exam Limited By: Respiratory Distress General Appearance: Alert, WD/WN, Mild Distress Eye Exam: Bilateral Eye: EOMI, Normal Inspection Ears: Normal External Exam, Hearing Grossly Normal Nose: Normal Inspection Throat/Mouth: Normal Inspection, Normal Voice, No Airway Compromise Head: Atraumatic, Normocephalic Neck: Normal Inspection, Supple, Non-Tender, Full Range of Motion Respiratory/Chest: Respiratory Distress, Decreased Breath Sounds, Crackles (LLL) Cardiovascular: Normal Peripheral Pulses, Regular Rate, Rhythm, No Edema, No Gallop, No JVD, No Murmur, No Rub Peripheral Pulses: 2+: Radial (L), Radial (R) GI/Abdominal: Normal Bowel Sounds, Soft, Non-Tender (Male) Exam: Deferred Rectal (Males) Exam: Deferred Back Exam: Normal Inspection, Full Range of Motion, NT Extremities: Normal Inspection, Normal Range of Motion, Non-Tender, Normal Capillary Refill, No Pedal Edema Neurological: Alert, Oriented, CN II-XII Intact, Normal Cognition, Normal Gait, Normal Reflexes, No Motor/Sensory Deficits Psychiatric: Normal Affect, Normal Mood Skin Exam: Warm, Dry, Intact, Normal Color, No Rash Lymphatic: No Adenopathy #1 Interpretation EKG Date: 05/19/21 Time: 22:52 Rhythm: NSR Rate (Beats/Min): 84 [place]: Normal P-Wave: Present QRS: Normal ST-T: Normal QT: Normal Comparison: NA - No Prior EKG Course - Vital Signs Last Recorded V/S: Last Vital Signs Temp 98.4 F 05/20/21 01:04 Pulse 84 05/20/21 02:53 Resp 22 H 05/20/21 02:53 BP 121/73 05/20/21 02:53 Pulse Ox 94 L 05/20/21 02:53 - Orders/Labs/Meds Orders: Active Orders 24 hr Category Date Time Status CULTURE BLOOD [BC] Stat Lab 05/19/21 22:45 Results CULTURE BLOOD [BC] Stat Lab 05/19/21 22:55 Received Blood Culture x2 Reflex Set [OM.PC] Stat Oth 05/19/21 22:51 Ordered Medication Orders Acetaminophen (Acetaminophen 325 Mg Tab) 650 mg PO Q4H PRN PRN Reason: Pain (Mild 1-3)/fever Albuterol/Ipratropium (Albuterol/Ipratropium 3.0-0.5 Mg/3 Ml Neb Soln) 3 ml NEB Q4H PRN PRN Reason: shortness of breath/wheezing Amlodipine Besylate (Amlodipine 5 Mg Tab) 10 mg PO BEDTIME [facility] Ascorbic Acid (Ascorbic Acid 500 Mg Tab) 1,000 mg PO DAILY [facility] Atorvastatin Calcium (Atorvastatin 20 Mg Tab) 20 mg PO DAILY [facility] Bisacodyl (Bisacodyl 5 Mg Tab) 5 mg PO DAILY PRN PRN Reason: Constipation Dexamethasone (Dexamethasone 4 Mg/Ml Sdv) 6 mg IVPUSH DAILY [facility] Stop: 05/29/21 09:01 Dextrose/Water (50% Dextrose In Water 50 Ml Syringe) 50 ml IVPUSH Q15M PRN PRN Reason: Hypoglycemia Docusate Sodium (Docusate Sodium 100 Mg Cap) 100 mg PO BID PRN PRN Reason: Constipation Enoxaparin Sodium (Enoxaparin 40 Mg/0.4 Ml Syringe) 40 mg SUBCUT DAILY [facility] Glimepiride (Glimepiride 2 Mg Tab) 4 mg PO WITHBREAKFAST [facility] Glucagon (Glucagon,Human Recombinant 1 Mg Vial) 1 mg IM Q15M PRN PRN Reason: Hypoglycemia Remdesivir 200 mg/ Sodium (Chloride) 250 mls @ 250 mls/hr IV ONETIME ONE Stop: 05/20/21 03:58 Last Admin: 05/20/21 03:32 Dose: 250 mls/hr Documented by: JULITO Remdesivir 100 mg/ Sodium (Chloride) 100 mls @ 100 mls/hr IV Q24H [facility] Stop: 05/24/21 09:59 Piperacillin Sod/Tazobactam (Sod 3.375 gm/ Sodium Chloride) 100 mls @ 200 mls/hr IV Q6H [facility] Last Admin: 05/20/21 03:31 Dose: 200 mls/hr Documented by: JULITO Tocilizumab 800 mg/ Sodium (Chloride) 140 mls @ 140 mls/hr IV ONETIME ONE Stop: 05/20/21 04:04 Insulin Human Lispro (Insulin Lispro 100 Units/Ml 3 Ml Vial) 0 unit SUBCUT WITHMEALSANDBED [facility]MIEL; Protocol Ondansetron HCl (Ondansetron 4 Mg/2 Ml Sdv) 4 mg IVPUSH Q6H PRN PRN Reason: Nausea/Vomiting Labs: Laboratory Tests 05/19/21 05/19/21 05/19/21 Range/Units 22:45 22:45 22:45 WBC 9.3 (5.0-10.0) 10^3/uL RBC 5.80 (4.6-6.2) 10^6/uL Hgb 17.3 (14.0-18.0) g/dL Hct 48.1 (40.0-54.0) % MCV 82.9 (80-100) fL MCH 29.8 (27.0-34.0) pg MCHC 36.0 H (33.0-35.0) g/dL Plt Count 189 (150-450) 10^3/uL Neut % (Auto) 82.7 H (42.2-75.2) % Lymph % (Auto) 11.1 L (20.5-50.1) % [place] % (Auto) 6.1 (2-8) % Eos % (Auto) 0.0 L (1.0-3.0) % Baso % (Auto) 0.1 (0.0-1.0) % D-Dimer, Quantitative 107 (0-400) ng/mL Sodium 137 (136-145) mmol/L Potassium 4.0 (3.5-5.1) mmol/L Chloride 98 (98-107) mmol/L Carbon Dioxide 26 (21-32) mmol/L Anion Gap 17.0 H (7-13) mEq/L BUN 25 H (7-18) mg/dL Creatinine 1.49 H (0.70-1.30) mg/dL Est Cr Clr Drug Dosing 64.58 mL/min Estimated GFR (MDRD) 52 BUN/Creatinine Ratio 16.8 (No establ ref range) Glucose 259 H (70-99) mg/dL Lactic Acid (0.4-2.0) mmol/L Calcium 8.0 L (8.5-10.1) mg/dL Total Bilirubin 0.7 (0.2-1.0) mg/dL AST 35 (15-37) U/L ALT 54 (16-63) U/L Alkaline Phosphatase 81 (46-116) U/L Lactate Dehydrogenase 292 H (85-227) U/L Troponin I High Sens 10 (<=76) pg/mL C-Reactive Protein 6.9 H (0.0-0.9) mg/dL Total Protein 7.2 (6.4-8.2) g/dL Albumin 3.3 L (3.4-5.0) g/dL Globulin 3.9 Albumin/Globulin Ratio 0.85 10/17/21 Range/Units 22:45 WBC (5.0-10.0) 10^3/uL RBC (4.6-6.2) 10^6/uL Hgb (14.0-18.0) g/dL Hct (40.0-54.0) % MCV (80-100) fL MCH (27.0-34.0) pg MCHC (33.0-35.0) g/dL Plt Count (150-450) 10^3/uL Neut % (Auto) (42.2-75.2) % Lymph % (Auto) (20.5-50.1) % [place] % (Auto) (2-8) % Eos % (Auto) (1.0-3.0) % Baso % (Auto) (0.0-1.0) % D-Dimer, Quantitative (0-400) ng/mL Sodium (136-145) mmol/L Potassium (3.5-5.1) mmol/L Chloride (98-107) mmol/L Carbon Dioxide (21-32) mmol/L Anion Gap (7-13) mEq/L BUN (7-18) mg/dL Creatinine (0.70-1.30) mg/dL Est Cr Clr Drug Dosing mL/min Estimated GFR (MDRD) BUN/Creatinine Ratio (No establ ref range) Glucose (70-99) mg/dL Lactic Acid 3.0 H* (0.4-2.0) mmol/L Calcium (8.5-10.1) mg/dL Total Bilirubin (0.2-1.0) mg/dL AST (15-37) U/L ALT (16-63) U/L Alkaline Phosphatase (46-116) U/L Lactate Dehydrogenase (85-227) U/L Troponin I High Sens (<=76) pg/mL C-Reactive Protein (0.0-0.9) mg/dL Total Protein (6.4-8.2) g/dL Albumin (3.4-5.0) g/dL Globulin Albumin/Globulin Ratio Meds: Medications Generic Name Dose Route Start Last Admin Trade Name Freq PRN Reason Stop Dose Admin Acetaminophen 650 mg 05/20/21 02:52 Acetaminophen 325 Mg Tab PO Q4H PRN Pain (Mild 1-3)/fever Albuterol/Ipratropium 3 ml 05/20/21 02:52 Albuterol/Ipratropium 3.0-0.5 Mg/3 Ml Neb Soln NEB Q4H PRN shortness of breath/wheezing Amlodipine Besylate 10 mg 05/20/21 21:00 Amlodipine 5 Mg Tab PO BEDTIME [facility] Ascorbic Acid 1,000 mg 05/20/21 09:00 Ascorbic Acid 500 Mg Tab PO DAILY [facility] Atorvastatin Calcium 20 mg 05/20/21 09:00 Atorvastatin 20 Mg Tab PO DAILY [facility] Bisacodyl 5 mg 05/20/21 02:52 Bisacodyl 5 Mg Tab PO DAILY PRN Constipation Dexamethasone 6 mg 05/20/21 09:00 Dexamethasone 4 Mg/Ml Sdv IVPUSH 05/29/21 09:01 DAILY [facility] Dextrose/Water 50 ml 05/20/21 03:03 50% Dextrose In Water 50 Ml Syringe IVPUSH Q15M PRN Hypoglycemia Docusate Sodium 100 mg 05/20/21 02:52 Docusate Sodium 100 Mg Cap PO BID PRN Constipation Enoxaparin Sodium 40 mg 05/20/21 09:00 Enoxaparin 40 Mg/0.4 Ml Syringe SUBCUT DAILY [facility] Glimepiride 4 mg 05/20/21 08:00 Glimepiride 2 Mg Tab PO WITHBREAKFAST [facility] Glucagon 1 mg 05/20/21 03:03 Glucagon,Human Recombinant 1 Mg Vial IM Q15M PRN Hypoglycemia Remdesivir 200 mg/ Sodium 250 mls @ 250 mls/hr 05/20/21 02:59 05/20/21 03:32 Chloride IV 05/20/21 03:58 250 mls/hr ONETIME ONE Administration Remdesivir 100 mg/ Sodium 100 mls @ 100 mls/hr 05/21/21 09:00 Chloride IV 05/24/21 09:59 Q24H [facility] Piperacillin Sod/Tazobactam 100 mls @ 200 mls/hr 05/20/21 03:15 05/20/21 03:31 Sod 3.375 gm/ Sodium Chloride IV 200 mls/hr Q6H [facility] Administration Tocilizumab 800 mg/ Sodium 140 mls @ 140 mls/hr 05/20/21 03:05 Chloride IV 05/20/21 04:04 ONETIME ONE Insulin Human Lispro 0 unit 05/20/21 08:00 Insulin Lispro 100 Units/Ml 3 Ml Vial SUBCUT WITHMEALSANDBED [facility] Protocol Ondansetron HCl 4 mg 05/20/21 02:52 Ondansetron 4 Mg/2 Ml Sdv IVPUSH Q6H PRN Nausea/Vomiting - Radiology Interpretation Free Text/Narrative:: Chest xray: [facility] Final Radiology Report Call: [phone] assistance Online chat: [email or web address] Name: HELEN ANDRADE Age: 40Years M Date: 05/20/2021 SSN: -- : 1980 Study: CR CHEST 1V FRONTAL Requesting Physician: Caryl Nguyen Images: 1 Addl Studies: Provided Clinical History: chest pain Contrast: Contrast Medium: Contrast Amount: Contrast Method: CONFIDENTIALITY STATEMENT This report is intended only for use by the referring physician, and only in accordance with law. If you received this in error, call [phone]. Page 1 of 1 PROCEDURE INFORMATION: Exam: XR Chest Exam date and time: 05/20/2021 12:13 AM Age: 40 years old Clinical indication: Other: Covid; Additional info: Chest pain TECHNIQUE: Imaging protocol: XR of the chest. Views: 1 view. COMPARISON: CR Chest 1V Frontal 05/18/2021 5:29 PM FINDINGS: Lungs: There are patchy bilateral interstitial opacities present, findings compatible with a patchy bilateral interstitial pneumonia. Pleural spaces: Unremarkable. No pleural effusion. No pneumothorax. Heart/Mediastinum: Unremarkable. No cardiomegaly. Bones/joints: Unremarkable. IMPRESSION: Patchy bilateral interstitial pneumonia. Thank you for allowing us to participate in the care of your patient. Dictated and Authenticated by: Brayan Rm MD 05/20/2021 1:41 AM Central Time ([place] & [place]) See rad report - Re-Assessments/Exams Free Text/Narrative Re-Assessment/Exam: 05/20/21 00:57 Discussed patient case with Dr. Flores. He states the patient is very high risk for worsening. Did call [facility] 2nd call who states the [facility] are only accepting STEMI's, strokes, and traumas. The patient was put on a waiting list for a bed somewhere. Called Dr. Flores back who agreed to accept the patient for inpatient admission here until able to transfer the patient. Departure - Departure Time of Disposition: 00:59 Disposition: Admitted As Inpatient 64 Condition: Fair Clinical Impression: Pneumonia due to COVID-19 virus, Hypoxia - Discharge Information *PRESCRIPTION DRUG MONITORING PROGRAM REVIEWED*: No *COPY OF PRESCRIPTION DRUG MONITORING REPORT IN PATIENT NICKY: No Sepsis Event Note (ED) - Focused Exam Vital Signs: Vital Signs Temp Pulse Resp BP Pulse Ox 05/19/21 23:05 99 F 99 24 H 107/73 86 L - My Orders Last 24 Hours: My Active Orders 05/19/21 22:45 CULTURE BLOOD [BC] Stat 05/19/21 22:51 Blood Culture x2 Reflex Set [OM.PC] Stat 05/19/21 22:55 CULTURE BLOOD [BC] Stat - Assessment/Plan Last 24 Hours: My Active Orders 05/19/21 22:45 CULTURE BLOOD [BC] Stat 05/19/21 22:51 Blood Culture x2 Reflex Set [OM.PC] Stat 05/19/21 22:55 CULTURE BLOOD [BC] Stat
--- NOTE | 2021-05-20 01:41 | CR ---
PROCEDURE INFORMATION: Exam: XR Chest Exam date and time: 05/20/2021 12:13 AM Age: 40 years old Clinical indication: Other: Covid; Additional info: Chest pain TECHNIQUE: Imaging protocol: XR of the chest. Views: 1 view. COMPARISON: CR Chest 1V Frontal 05/18/2021 5:29 PM FINDINGS: Lungs: There are patchy bilateral interstitial opacities present, findings compatible with a patchy bilateral interstitial pneumonia. Pleural spaces: Unremarkable. No pleural effusion. No pneumothorax. Heart/Mediastinum: Unremarkable. No cardiomegaly. Bones/joints: Unremarkable. IMPRESSION: Patchy bilateral interstitial pneumonia.
[2021-05-20] MEDS ORDERED: Acetaminophen 325 MG Tab PO PRN (02:52)
[2021-05-20] MEDS ORDERED: Ondansetron 4 MG/2 ML SDV IVPUSH PRN (02:52)
[2021-05-20] MEDS ORDERED: Bisacodyl 5 MG Tab PO PRN (02:52)
[2021-05-20] MEDS ORDERED: Docusate Sodium 100 MG Cap PO PRN (02:52)
[2021-05-20] MEDS ORDERED: Albuterol/Ipratropium 3.0-0.5 MG/3 ML Neb Soln NEB PRN (02:52)
[2021-05-20] MEDS ORDERED: REMDESIVIR 200 MG in Sodium Chloride 0.9% 250 ML IV ONE (02:59)
[2021-05-20] MEDS ORDERED: 50% Dextrose in Water 50 ML Syringe IVPUSH PRN (03:03)
[2021-05-20] MEDS ORDERED: Glucagon,Human Recombinant 1 MG Vial IM PRN (03:03)
[2021-05-20] MEDS ORDERED: Tocilizumab 800 MG in Sodium Chloride 0.9% 100 ML IV ONE ×3 (03:05→10:30)
--- NOTE | 2021-05-20 03:28 | PCM.HP ---
H&P History of Present Illness - General Date of Service: 05/20/21 Admit Problem/Dx: Admission Diagnosis/Problem Admission Diagnosis/Problem Hypoxia Source of Information: Patient, Provider (ER) History Limitations: Reports: No Limitations - History of Present Illness Initial Comments - Free Text/Narative: Pt is a 40 year old male who presents to ER with c/o SOB and low oxygen saturation at home. Pt states that his symptoms started on May 13. Patient was diagnosed with Covid Pneumonia on 05/18/2021. He was started on steroids and was discharged home. Patient has been monitoring his oxygen saturation at home. He states today he was having difficulty breathing, and oxygen saturation was anywhere from 75-85% on room air. Patient does not have oxygen at home. Patient states left sided chest/left lateral rib pain with breathing and coughing. Patient has hx of DMII. Vaccination status: unvaccinated. Chest Pain Score (Numeric/FACES): 5 - Related Data Allergies/Adverse Reactions: Allergies Allergy/AdvReac Type Severity Reaction Status Date / Time No Known Allergies Allergy Verified 05/18/21 16:31 Home Medications: Home Meds amLODIPine [Norvasc] 10 mg PO BEDTIME 09/26/15 [History] metFORMIN HCl [Metformin HCl] 1,000 mg PO BID 09/26/15 [History] atorvaSTATin [Lipitor] 20 mg PO DAILY 04/05/20 [History] Ascorbic Acid [Vitamin C with Sophy Hips] 1,000 mg PO DAILY 05/20/21 [History] Canagliflozin [Invokana] 300 mg PO DAILY 05/20/21 [History] Glimepiride 4 mg PO WITHBREAKFAST 05/20/21 [History] dexAMETHasone [Decadron] 6 mg PO DAILY 05/20/21 [History] Past Medical History Cardiovascular History: Reports: High Cholesterol, Hypertension Respiratory History: Reports: None, Sleep Apnea Gastrointestinal History: Reports: None Genitourinary History: Reports: None Musculoskeletal History: Reports: None Neurological History: Reports: None, Neuropathy, Diabetic Psychiatric History: Reports: None Endocrine/Metabolic History: Reports: Diabetes, Type II, Obesity/BMI 30+ Hematologic History: Reports: None Immunologic History: Reports: None Oncologic (Cancer) History: Reports: None Dermatologic History: Reports: None - Infectious Disease History Infectious Disease History: Reports: Chicken Pox, Novel Coronavirus - Past Surgical History Head Surgeries/Procedures: Reports: None HEENT Surgical History: Reports: Adenoidectomy, Tonsillectomy Musculoskeletal Surgical History: Reports: Other (See Below) Other Musculoskeletal Surgeries/Procedures:: right torn bicep repair and fx repair. Social & Family History - Family History Family Medical History: No Pertinent Family History - Tobacco Use Tobacco Use Status *Q: Never Tobacco User Second Hand Smoke Exposure: No - Caffeine Use Caffeine Use: Reports: Coffee - Recreational Drug Use Recreational Drug Use: No - Living Situation & Occupation Living situation: Reports: , with Family Occupation: Employed H&P Review of Systems - Review of Systems: Review Of Systems: See Below General: Reports: Fever, Malaise, Weakness, Fatigue Pulmonary: Reports: Shortness of Breath, Cough Cardiovascular: Reports: Chest Pain Gastrointestinal: Reports: Diarrhea (resolved), Vomiting (resolved) Musculoskeletal: Reports: No Symptoms Psychiatric: Reports: No Symptoms Neurological: Reports: No Symptoms Immunologic: Reports: No Symptoms Exam - Exam Exam: See Below - Vital Signs Vital Signs: Last Vital Signs Temp 98.4 F 05/20/21 01:04 Pulse 84 05/20/21 02:53 Resp 22 H 05/20/21 02:53 BP 121/73 05/20/21 02:53 Pulse Ox 94 L 05/20/21 02:53 Weight: 293 lb 4.8 oz - Exam Quality Assessment: Supplemental Oxygen General: Mild Distress HEENT: Conjunctiva Clear, EOMI (Male) Exam: Deferred Rectal (Males) Exam: Deferred Extremities: No Pedal Edema Skin: Warm, Dry Neurological: Cranial Nerves Intact Neuro Extensive - Mental Status: Alert, Oriented x3 Neuro Extensive - Motor, Sensory, Reflexes: CN II-XII Intact Psychiatric: Alert, Normal Affect - Patient Data Lab Results Last 24 hrs: Laboratory Results - last 24 hr 05/19/21 05/19/21 05/19/21 Range/Units 22:45 22:45 22:45 WBC 9.3 (5.0-10.0) 10^3/uL RBC 5.80 (4.6-6.2) 10^6/uL Hgb 17.3 (14.0-18.0) g/dL Hct 48.1 (40.0-54.0) % MCV 82.9 (80-100) fL MCH 29.8 (27.0-34.0) pg MCHC 36.0 H (33.0-35.0) g/dL Plt Count 189 (150-450) 10^3/uL Neut % (Auto) 82.7 H (42.2-75.2) % Lymph % (Auto) 11.1 L (20.5-50.1) % Cherry % (Auto) 6.1 (2-8) % Eos % (Auto) 0.0 L (1.0-3.0) % Baso % (Auto) 0.1 (0.0-1.0) % D-Dimer, Quantitative 107 (0-400) ng/mL Sodium 137 (136-145) mmol/L Potassium 4.0 (3.5-5.1) mmol/L Chloride 98 (98-107) mmol/L Carbon Dioxide 26 (21-32) mmol/L Anion Gap 17.0 H (7-13) mEq/L BUN 25 H (7-18) mg/dL Creatinine 1.49 H (0.70-1.30) mg/dL Est Cr Clr Drug Dosing 64.58 mL/min Estimated GFR (MDRD) 52 BUN/Creatinine Ratio 16.8 (No establ ref range) Glucose 259 H (70-99) mg/dL Lactic Acid (0.4-2.0) mmol/L Calcium 8.0 L (8.5-10.1) mg/dL Total Bilirubin 0.7 (0.2-1.0) mg/dL AST 35 (15-37) U/L ALT 54 (16-63) U/L Alkaline Phosphatase 81 (46-116) U/L Lactate Dehydrogenase 292 H (85-227) U/L Troponin I High Sens 10 (<=76) pg/mL C-Reactive Protein 6.9 H (0.0-0.9) mg/dL Total Protein 7.2 (6.4-8.2) g/dL Albumin 3.3 L (3.4-5.0) g/dL Globulin 3.9 Albumin/Globulin Ratio 0.85 05/19/21 05/20/21 Range/Units 22:45 01:55 WBC (5.0-10.0) 10^3/uL RBC (4.6-6.2) 10^6/uL Hgb (14.0-18.0) g/dL Hct (40.0-54.0) % MCV (80-100) fL MCH (27.0-34.0) pg MCHC (33.0-35.0) g/dL Plt Count (150-450) 10^3/uL Neut % (Auto) (42.2-75.2) % Lymph % (Auto) (20.5-50.1) % Cherry % (Auto) (2-8) % Eos % (Auto) (1.0-3.0) % Baso % (Auto) (0.0-1.0) % D-Dimer, Quantitative (0-400) ng/mL Sodium (136-145) mmol/L Potassium (3.5-5.1) mmol/L Chloride (98-107) mmol/L Carbon Dioxide (21-32) mmol/L Anion Gap (7-13) mEq/L BUN (7-18) mg/dL Creatinine (0.70-1.30) mg/dL Est Cr Clr Drug Dosing mL/min Estimated GFR (MDRD) BUN/Creatinine Ratio (No establ ref range) Glucose (70-99) mg/dL Lactic Acid 3.0 H* 1.7 (0.4-2.0) mmol/L Calcium (8.5-10.1) mg/dL Total Bilirubin (0.2-1.0) mg/dL AST (15-37) U/L ALT (16-63) U/L Alkaline Phosphatase (46-116) U/L Lactate Dehydrogenase (85-227) U/L Troponin I High Sens (<=76) pg/mL C-Reactive Protein (0.0-0.9) mg/dL Total Protein (6.4-8.2) g/dL Albumin (3.4-5.0) g/dL Globulin Albumin/Globulin Ratio Result Diagrams: 05/19/21 22:45 05/19/21 22:45 [place] Results Last 24 hrs: Microbiology 05/19/21 22:45 Anaerobic Blood Culture - Final Blood - Venous Problem List Initiated/Reviewed/Updated: No Orders Last 24hrs: Active Orders 24 hr Category Date Time Status Admission Diagnosis [ADT] Stat ADT 05/20/21 00:37 Ordered Admission Status [Patient Status] [ADT] Routine ADT 05/20/21 00:37 Active Patient Status [ADT] Routine ADT 05/20/21 02:53 Active Blood Glucose Check, Bedside [RC] WITHMEALSANDBED Care 05/20/21 02:52 Active Cardiac Monitoring [RC] 08,20 Care 05/20/21 02:54 Active Height and Weight [RC] DAILY Care 05/20/21 02:52 Active Intake and Output [RC] QSHIFT Care 05/20/21 02:54 Active Oxygen Therapy [RC] PRN Care 05/20/21 02:53 Active Pulse Oximetry [RC] CONTINUOUS Care 05/20/21 02:54 Active RT Aerosol Therapy [RC] ASDIRECTED Care 05/20/21 02:56 Active RT Incentive Spirometry [RC] ASDIRECTED Care 05/20/21 02:59 Active Up ad Nancy [RC] ASDIRECTED Care 05/20/21 02:52 Active VTE/DVT Education [RC] PER UNIT ROUTINE Care 05/20/21 02:53 Active Vital Signs [RC] Q4H Care 05/20/21 02:53 Active Consistent Carbohydrate Diet [DIET] Diet 05/20/21 Breakfast Active C-REACTIVE PROTEIN [CHEM] Routine Lab 05/20/21 05:11 Ordered COMPREHENSIVE METABOLIC PN,CMP [CHEM] AM Lab 05/20/21 05:11 Ordered CULTURE BLOOD [BC] Stat Lab 05/19/21 22:45 Results CULTURE BLOOD [BC] Stat Lab 05/19/21 22:55 Received FERRITIN [CHEM] Routine Lab 05/20/21 05:00 Ordered PROCALCITONIN [REF] Routine Lab 05/20/21 Ordered Acetaminophen [TylenoL] Med 05/20/21 02:52 Active 650 mg PO Q4H PRN Albuterol/Ipratropium [DuoNeb 3.0-0.5 MG/3 ML] Med 05/20/21 02:52 Active 3 ml NEB Q4H PRN Dextrose 50% in Water Med 05/20/21 03:03 Active 50 ml IVPUSH Q15M PRN Docusate Sodium [Colace] Med 05/20/21 02:52 Active 100 mg PO BID PRN Enoxaparin [Lovenox] Med 05/20/21 09:00 Active 40 mg SUBCUT DAILY Glucagon,Human Recombinant [GlucaGen] Med 05/20/21 03:03 Active 1 mg IM Q15M PRN Insulin Lispro [HumaLOG] Med 05/20/21 08:00 Active See Protocol SUBCUT WITHMEALSANDBED Ondansetron [Zofran] Med 05/20/21 02:52 Active 4 mg IVPUSH Q6H PRN Piperacillin/Tazobactam [Zosyn] 3.375 gm Med 05/20/21 03:15 Active Sodium Chloride 0.9% [Normal Saline] 100 ml IV Q6H Remdesivir 100 mg Med 05/21/21 09:00 Active Sodium Chloride 0.9% [Normal Saline] 100 ml IV Q24H Remdesivir 200 mg Med 05/20/21 02:59 Active Sodium Chloride 0.9% [Normal Saline] 250 ml IV ONETIME Tocilizumab [Actemra] 80 mg Med 05/20/21 03:05 Ordered Sodium Chloride 0.9% [Normal Saline] 100 ml IV ONETIME bisacodyL [Dulcolax] Med 05/20/21 02:52 Active 5 mg PO DAILY PRN dexAMETHasone [Decadron] Med 05/20/21 09:00 Active 6 mg IVPUSH DAILY Blood Culture x2 Reflex Set [OM.PC] Stat Oth 05/19/21 22:51 Ordered Isolation [COMM] Stat Oth 05/20/21 02:59 Active Resuscitation Status Routine Resus Stat 05/20/21 02:52 Ordered Medication Orders Acetaminophen (Acetaminophen 325 Mg Tab) 650 mg PO Q4H PRN PRN Reason: Pain (Mild 1-3)/fever Albuterol/Ipratropium (Albuterol/Ipratropium 3.0-0.5 Mg/3 Ml Neb Soln) 3 ml NEB Q4H PRN PRN Reason: shortness of breath/wheezing Bisacodyl (Bisacodyl 5 Mg Tab) 5 mg PO DAILY PRN PRN Reason: Constipation Dexamethasone (Dexamethasone 4 Mg/Ml Sdv) 6 mg IVPUSH DAILY [facility] Stop: 05/29/21 09:01 Dextrose/Water (50% Dextrose In Water 50 Ml Syringe) 50 ml IVPUSH Q15M PRN PRN Reason: Hypoglycemia Docusate Sodium (Docusate Sodium 100 Mg Cap) 100 mg PO BID PRN PRN Reason: Constipation Enoxaparin Sodium (Enoxaparin 40 Mg/0.4 Ml Syringe) 40 mg SUBCUT DAILY [facility] Glucagon (Glucagon,Human Recombinant 1 Mg Vial) 1 mg IM Q15M PRN PRN Reason: Hypoglycemia Remdesivir 200 mg/ Sodium (Chloride) 250 mls @ 250 mls/hr IV ONETIME ONE Stop: 05/20/21 03:58 Remdesivir 100 mg/ Sodium (Chloride) 100 mls @ 100 mls/hr IV Q24H [facility] Stop: 05/24/21 09:59 Piperacillin Sod/Tazobactam (Sod 3.375 gm/ Sodium Chloride) 100 mls @ 200 mls/hr IV Q6H [facility] Tocilizumab 80 mg/ Sodium (Chloride) 104 mls @ 104 mls/hr IV ONETIME ONE Stop: 05/20/21 03:06 Insulin Human Lispro (Insulin Lispro 100 Units/Ml 3 Ml Vial) 0 unit SUBCUT WITHMEALSANDBED [facility]; Protocol Ondansetron HCl (Ondansetron 4 Mg/2 Ml Sdv) 4 mg IVPUSH Q6H PRN PRN Reason: Nausea/Vomiting Assessment/Plan Comment:: Acute hypoxic respiratory failure due to COVID pneumonia; DM type 2 Morbid obesity HTN O2 Dexamethasone Remdesivir Tocilizumab DVT prophylaxis Inflammatory markers Pt is already placed on the transfer list, due to his multiple risk factors . Full code
[2021-05-20] MEDS: Piperacillin/Tazobactam 3.375 GM in Sodium Chloride 0.9% 100 ML IV SCH ×4 (03:31→21:20)
[2021-05-20 08:03] LABS: ANION GAP 16.8 mEq/L (7-13)
[2021-05-20] MEDS: Glimepiride 2 MG Tab PO SCH (08:51)
[2021-05-20] MEDS: Ascorbic Acid 500 MG Tab PO SCH (08:51)
[2021-05-20] MEDS: atorvaSTATin 20 MG Tab PO SCH (08:51)
[2021-05-20] MEDS: Dexamethasone 4 MG/ML SDV IVPUSH SCH (08:52)
[2021-05-20] MEDS: Enoxaparin 40 MG/0.4 ML Syringe SUBCUT SCH (08:57)
[2021-05-20] MEDS: Insulin Lispro 100 Units/ML 3 ML Vial SUBCUT SCH ×4 (09:10→21:31)
--- NOTE | 2021-05-20 12:15 | PCM.SN.2 ---
- Free Text/Narrative Note: [facility] called they may have a bed. Case was D/W Dr. Fisher ( hospitalist) . labs and imaging were reviewed. He would like to get CT chest without contrast before deciding on accepting the transfer. Time Documentation
--- NOTE | 2021-05-20 14:46 | CT ---
EXAMINATION: Chest wo Cont SEX: Male AGE: 40 years CLINICAL HISTORY: 40-year-old hospitalized, afebrile male with clinical "COVID 19 pneumonia". Persistent low O2 sats (mid 80s-low 90s) despite 5 L of oxygen. Scan technique: Volume acquisition of data unenhanced screening CT scan of the chest (bony thorax, lungs and mediastinum) obtained with the patient lying supine on the Siemens multislice scanner [place], [place]. All data archived in the PAC system for storage, reformatting axial/sagittal/coronal planes and study. Interpretation: Abnormal. *Extensive multilobar peripheral "groundglass" interstitial infiltrates and nodular areas of consolidation consistent with vasculitis often seen with COVID infection. No effusions. No air bronchograms, atelectasis or collapse. No suspicious lung mass or hilar/mediastinal lymphadenopathy. Normal cardiac silhouette. No pericardial effusion, vascular congestion or dependent pleural effusion. Atheromatous calcifications arch of normal caliber thoracic aorta. Smoker? Hypertrophic spondylosis dorsal spine. No fracture or dislocation. No cystic or bullous emphysematous lesions. No pneumothorax or pneumomediastinum. Gallbladder, unenhanced liver, stomach, spleen, most of the pancreas and adrenal glands anatomically correct.
--- NOTE | 2021-05-20 15:20 | PCM.SN.2 ---
- Free Text/Narrative Note: CT scan: consistent with COVID pneumonia. D/W Pt the option of transfer VS observation for one more day. Pt would rather to stay here. Continue same management. Repeat inflammatory markers in AM. [facility] transfer line was informed. Time Documentation
[2021-05-20] MEDS: amLODIPine 5 MG Tab PO SCH (21:31)
[2021-05-21] MEDS: Piperacillin/Tazobactam 3.375 GM in Sodium Chloride 0.9% 100 ML IV SCH ×5 (03:22→21:38)
[2021-05-21] MEDS: Ascorbic Acid 500 MG Tab PO SCH (08:51)
[2021-05-21] MEDS: Glimepiride 2 MG Tab PO SCH (08:52)
[2021-05-21] MEDS: Enoxaparin 40 MG/0.4 ML Syringe SUBCUT SCH (08:54)
[2021-05-21 08:55] LABS: ANION GAP 14.1 mEq/L (7-13); CHLORIDE,CL 101 mmol/L (98-107); SODIUM,NA 138 mmol/L (136-145)
[2021-05-21] MEDS: Dexamethasone 4 MG/ML SDV IVPUSH SCH (08:57)
[2021-05-21] MEDS: atorvaSTATin 20 MG Tab PO SCH (08:57)
[2021-05-21] MEDS: REMDESIVIR 100 MG in Sodium Chloride 0.9% 100 ML IV SCH (08:58)
[2021-05-21] MEDS: Insulin Lispro 100 Units/ML 3 ML Vial SUBCUT SCH ×4 (09:07→21:34)
[2021-05-21] MEDS: Sodium Chloride 0.9% 10 ML Syringe FLUSH PRN ×2 (17:08→21:38)
[2021-05-21] MEDS: amLODIPine 5 MG Tab PO SCH (20:12)
[2021-05-22] MEDS: Sodium Chloride 0.9% 10 ML Syringe FLUSH PRN (04:08)
[2021-05-22] MEDS: Piperacillin/Tazobactam 3.375 GM in Sodium Chloride 0.9% 100 ML IV SCH ×4 (04:08→21:02)
[2021-05-22 07:08] LABS: ANION GAP 14.1 mEq/L (7-13); CHLORIDE,CL 103 mmol/L (98-107); SODIUM,NA 140 mmol/L (136-145)
[2021-05-22] MEDS: Ascorbic Acid 500 MG Tab PO SCH (08:21)
[2021-05-22] MEDS: Glimepiride 2 MG Tab PO SCH (08:21)
[2021-05-22] MEDS: Enoxaparin 40 MG/0.4 ML Syringe SUBCUT SCH (08:21)
[2021-05-22] MEDS: atorvaSTATin 20 MG Tab PO SCH (08:22)
[2021-05-22] MEDS: Dexamethasone 4 MG/ML SDV IVPUSH SCH (08:22)
[2021-05-22] MEDS: Insulin Lispro 100 Units/ML 3 ML Vial SUBCUT SCH ×4 (08:31→21:14)
[2021-05-22] MEDS: REMDESIVIR 100 MG in Sodium Chloride 0.9% 100 ML IV SCH (08:33)
[2021-05-22] MEDS: amLODIPine 5 MG Tab PO SCH (21:01)
[2021-05-23] MEDS: Piperacillin/Tazobactam 3.375 GM in Sodium Chloride 0.9% 100 ML IV SCH ×2 (04:03→10:35)
[2021-05-23 06:45] LABS: ANION GAP 13.3 mEq/L (7-13); CHLORIDE,CL 104 mmol/L (98-107); SODIUM,NA 141 mmol/L (136-145)
[2021-05-23] MEDS: Insulin Lispro 100 Units/ML 3 ML Vial SUBCUT SCH ×2 (08:00→12:30)
[2021-05-23] MEDS: Dexamethasone 4 MG/ML SDV IVPUSH SCH (09:12)
[2021-05-23] MEDS: atorvaSTATin 20 MG Tab PO SCH (09:12)
[2021-05-23] MEDS: Ascorbic Acid 500 MG Tab PO SCH (09:13)
[2021-05-23] MEDS: Glimepiride 2 MG Tab PO SCH (09:13)
[2021-05-23] MEDS: Enoxaparin 40 MG/0.4 ML Syringe SUBCUT SCH (09:15)
[2021-05-23] MEDS: REMDESIVIR 100 MG in Sodium Chloride 0.9% 100 ML IV SCH (09:20)
--- NOTE | 2021-05-23 12:50 | PCM.DCSUM1 ---
Discharge Summary - Hospital Course Free Text/Narrative:: Sid is a 40-year-old man who was admitted on 05/20/2021 with severe COVID-19 lung disease. He was noted to be in the high 70s with his oxygen saturation upon admission. He received Tocilizumab immediately upon admission, and was also started on remdesivir protocol. He received daily dexamethasone IV. By hospital day #3, his oxygen saturations had stabilized on 5 L of oxygen via nasal cannula. On day of discharge, he continued to be stable on that same oxygen requirement, so was deemed suitable for discharge home with home oxygen supplementation. - Discharge Data Discharge Date: 05/23/21 Discharge Disposition: Home, Self-Care 01 Condition: Good - Referral to Home Health Date of Face to Face Encounter: 05/23/21 Primary Care Physician: PCP None - Discharge Diagnosis/Problem(s) (1) Pneumonia due to COVID-19 virus SNOMED Code(s): 087103408878327401 ICD Code: U07.1 - COVID-19; J12.82 - PNEUMONIA DUE TO CORONAVIRUS DISEASE 2019 Status: Acute Priority: High - Discharge Plan *PRESCRIPTION DRUG MONITORING PROGRAM REVIEWED*: Not Applicable *COPY OF PRESCRIPTION DRUG MONITORING REPORT IN PATIENT NICKY: Not Applicable Prescriptions/Med Rec: Albuterol Sulfate [Albuterol Sulfate HFA] 8.5 gm INH Q2H PRN #2 ea PRN Reason: Dyspnea Home Medications: Home Meds amLODIPine [Norvasc] 10 mg PO BEDTIME 09/26/15 [History] metFORMIN HCl [Metformin HCl] 1,000 mg PO BID 09/26/15 [History] atorvaSTATin [Lipitor] 20 mg PO DAILY 04/05/20 [History] Ascorbic Acid [Vitamin C with Sophy Hips] 1,000 mg PO DAILY 05/20/21 [History] Canagliflozin [Invokana] 300 mg PO DAILY 05/20/21 [History] Glimepiride 4 mg PO WITHBREAKFAST 05/20/21 [History] Albuterol Sulfate [Albuterol Sulfate HFA] 8.5 gm INH Q2H PRN #2 ea 05/23/21 [Rx] Patient Handouts: COVID-19 Frequently Asked Questions, 10 Things You Can Do to Manage Your COVID-19 Symptoms at Home - [facility] (02/15/2021), Infection Prevention in the Home, COVID-19: Quarantine vs. Isolation - [facility] (07/19/2020) Referrals: Katalina Alcala NP [Ordering Only Provider] - - Discharge Summary/Plan Comment DC Time >30 min.: Yes Total # of Minutes for Discharge Time: 35 minutes Discharge Summary/Plan Comment: Discharge diagnoses: 1. 40-year-old man with severe COVID-19 lung disease, resolving 2. Diabetes mellitus type 2 Discharge plan: 1. He is discharged home today, even though he has significant oxygen requirements, he is appropriate for treatment at home with supplemental oxygen. 2. On the morning of day of discharge, Sid was still dropping down to 86 to 88% on room air at rest, and is requiring home oxygen supplementation 3. He will recheck with his primary care provider via telemedicine visit later this week or early next week 4. Sid received Tocilizumab, and 3 days of remdesivir treatment - General Info Date of Service: 05/23/21 Admission Dx/Problem (Free Text: Admission Diagnosis/Problem Admission Diagnosis/Problem Hypoxia Subjective Update: See above's assessment - Patient Data Vitals - Most Recent: Last Vital Signs Temp 97.5 F 05/23/21 07:38 Pulse 65 05/23/21 07:38 Resp 32 H 05/23/21 11:41 BP 130/82 05/23/21 07:38 Pulse Ox 86 L 05/23/21 11:41 Weight - Most Recent: 287 lb 1.6 oz I&O - Last 24 hours: Intake & Output 05/22/21 05/23/21 05/23/21 22:59 06:59 14:59 Intake Total 800 200 480 Balance 800 200 480 Lab Results - Last 24 hrs: Laboratory Results - last 24 hr 05/22/21 05/22/21 05/23/21 Range/Units 17:15 21:08 06:15 WBC 10.9 H (5.0-10.0) 10^3/uL RBC 5.65 (4.6-6.2) 10^6/uL Hgb 16.9 (14.0-18.0) g/dL Hct 46.9 (40.0-54.0) % MCV 83.0 (80-100) fL MCH 29.9 (27.0-34.0) pg MCHC 36.0 H (33.0-35.0) g/dL Plt Count 268 (150-450) 10^3/uL Neut % (Auto) 66.0 (42.2-75.2) % Lymph % (Auto) 22.5 (20.5-50.1) % [place] % (Auto) 11.1 H (2-8) % Eos % (Auto) 0.2 L (1.0-3.0) % Baso % (Auto) 0.2 (0.0-1.0) % Sodium (136-145) mmol/L Potassium (3.5-5.1) mmol/L Chloride (98-107) mmol/L Carbon Dioxide (21-32) mmol/L Anion Gap (7-13) mEq/L BUN (7-18) mg/dL Creatinine (0.70-1.30) mg/dL Est Cr Clr Drug Dosing mL/min Estimated GFR (MDRD) BUN/Creatinine Ratio (No establ ref range) Glucose (70-99) mg/dL POC Glucose 218 H 268 H (70-99) mg/dL Calcium (8.5-10.1) mg/dL Total Bilirubin (0.2-1.0) mg/dL AST (15-37) U/L ALT (16-63) U/L Alkaline Phosphatase (46-116) U/L Total Protein (6.4-8.2) g/dL Albumin (3.4-5.0) g/dL Globulin Albumin/Globulin Ratio 05/23/21 05/23/21 05/23/21 Range/Units 06:15 07:25 11:04 WBC (5.0-10.0) 10^3/uL RBC (4.6-6.2) 10^6/uL Hgb (14.0-18.0) g/dL Hct (40.0-54.0) % MCV (80-100) fL MCH (27.0-34.0) pg MCHC (33.0-35.0) g/dL Plt Count (150-450) 10^3/uL Neut % (Auto) (42.2-75.2) % Lymph % (Auto) (20.5-50.1) % [place] % (Auto) (2-8) % Eos % (Auto) (1.0-3.0) % Baso % (Auto) (0.0-1.0) % Sodium 141 (136-145) mmol/L Potassium 4.3 (3.5-5.1) mmol/L Chloride 104 (98-107) mmol/L Carbon Dioxide 28 (21-32) mmol/L Anion Gap 13.3 H (7-13) mEq/L BUN 22 H (7-18) mg/dL Creatinine 1.05 (0.70-1.30) mg/dL Est Cr Clr Drug Dosing 91.65 mL/min Estimated GFR (MDRD) > 60 BUN/Creatinine Ratio 21.0 (No establ ref range) Glucose 160 H (70-99) mg/dL POC Glucose 149 H 243 H (70-99) mg/dL Calcium 8.1 L (8.5-10.1) mg/dL Total Bilirubin 1.0 (0.2-1.0) mg/dL AST 15 (15-37) U/L ALT 34 (16-63) U/L Alkaline Phosphatase 66 (46-116) U/L Total Protein 6.4 (6.4-8.2) g/dL Albumin 3.0 L (3.4-5.0) g/dL Globulin 3.4 Albumin/Globulin Ratio 0.88 ROCKY Results - Last 24 hrs: Microbiology 05/19/21 22:45 Aerobic Blood Culture - Preliminary Blood - Venous NO GROWTH AFTER 3 DAYS Anaerobic Blood Culture - Final 05/19/21 22:55 Aerobic Blood Culture - Preliminary Blood - Venous - Lab Draw NO GROWTH AFTER 3 DAYS Anaerobic Blood Culture - Preliminary NO GROWTH AFTER 3 DAYS Med Orders - Current: Current Medications Acetaminophen (Acetaminophen 325 Mg Tab) 650 mg PO Q4H PRN PRN Reason: Pain (Mild 1-3)/fever Albuterol/Ipratropium (Albuterol/Ipratropium 3.0-0.5 Mg/3 Ml Neb Soln) 3 ml NEB Q4H PRN PRN Reason: shortness of breath/wheezing Amlodipine Besylate (Amlodipine 5 Mg Tab) 10 mg PO BEDTIME [facility] Last Admin: 05/22/21 21:01 Dose: 10 mg Documented by: Ascorbic Acid (Ascorbic Acid 500 Mg Tab) 1,000 mg PO DAILY [facility] Last Admin: 05/23/21 09:13 Dose: 1,000 mg Documented by: Atorvastatin Calcium (Atorvastatin 20 Mg Tab) 20 mg PO DAILY [facility] Last Admin: 05/23/21 09:12 Dose: 20 mg Documented by: Bisacodyl (Bisacodyl 5 Mg Tab) 5 mg PO DAILY PRN PRN Reason: Constipation Dexamethasone (Dexamethasone 4 Mg/Ml Sdv) 6 mg IVPUSH DAILY [facility] Stop: 05/29/21 09:01 Last Admin: 05/23/21 09:12 Dose: 6 mg Documented by: Dextrose/Water (50% Dextrose In Water 50 Ml Syringe) 50 ml IVPUSH Q15M PRN PRN Reason: Hypoglycemia Docusate Sodium (Docusate Sodium 100 Mg Cap) 100 mg PO BID PRN PRN Reason: Constipation Enoxaparin Sodium (Enoxaparin 40 Mg/0.4 Ml Syringe) 40 mg SUBCUT DAILY [facility] Last Admin: 05/23/21 09:15 Dose: 40 mg Documented by: Glimepiride (Glimepiride 2 Mg Tab) 4 mg PO WITHBREAKFAST [facility] Last Admin: 05/23/21 09:13 Dose: 4 mg Documented by: Glucagon (Glucagon,Human Recombinant 1 Mg Vial) 1 mg IM Q15M PRN PRN Reason: Hypoglycemia Remdesivir 100 mg/ Sodium (Chloride) 100 mls @ 100 mls/hr IV Q24H [facility] Stop: 05/24/21 09:59 Last Infusion: 05/23/21 10:20 Dose: Infused Documented by: Piperacillin Sod/Tazobactam (Sod 3.375 gm/ Sodium Chloride) 100 mls @ 200 mls/hr IV Q6H [facility] Last Infusion: 05/23/21 11:05 Dose: Infused Documented by: Insulin Human Lispro (Insulin Lispro 100 Units/Ml 3 Ml Vial) 0 unit SUBCUT WITHMEALSANDBED [facility]; Protocol Last Admin: 05/23/21 12:30 Dose: 2 unit Documented by: Ondansetron HCl (Ondansetron 4 Mg/2 Ml Sdv) 4 mg IVPUSH Q6H PRN PRN Reason: Nausea/Vomiting Sodium Chloride (Sodium Chloride 0.9% 10 Ml Syringe) 10 ml FLUSH ASDIRECTED PRN PRN Reason: Keep Vein Open Last Admin: 05/22/21 04:08 Dose: 10 ml Documented by: Discontinued Medications Remdesivir 200 mg/ Sodium (Chloride) 250 mls @ 250 mls/hr IV ONETIME ONE Stop: 05/20/21 03:58 Last Admin: 05/20/21 03:32 Dose: 250 mls/hr Documented by: Piperacillin Sod/Tazobactam (Sod 3.375 gm/ Sodium Chloride) 100 mls @ 200 mls/hr IV Q6H [facility] Last Admin: 05/21/21 13:04 Dose: Not Given Documented by: Tocilizumab 800 mg/ Sodium (Chloride) 140 mls @ 140 mls/hr IV ONETIME ONE Stop: 05/20/21 04:04 Last Admin: 05/20/21 11:04 Dose: Not Given Documented by: Tocilizumab 800 mg/ Sodium (Chloride) 140 mls @ 140 mls/hr IV ONETIME ONE Stop: 05/20/21 09:59 Last Admin: 05/20/21 11:05 Dose: Not Given Documented by: Tocilizumab 800 mg/ Sodium (Chloride) 140 mls @ 140 mls/hr IV ONETIME ONE Stop: 05/20/21 11:29 Tocilizumab 800 mg/ Sodium (Chloride) 100 mls @ 100 mls/hr IV ONETIME ONE Stop: 05/20/21 11:14 Last Admin: 05/20/21 12:05 Dose: 100 mls/hr Documented by: - Exam Physical Findings Comments:: General: Sid is a 40-year-old man in no acute distress. With 5 L via nasal cannula in place, he is having no tachypnea or increased work of breathing Oropharynx is clear, mucous membranes are moist Neck: Supple, no lymphadenopathy Heart: Regular rate and rhythm, no murmurs Lungs: Significant expiratory wheezing bilaterally with very coarse breath sounds bilaterally consistent with resolving COVID-19 pneumonia
[2021-05-23 13:54] VITALS: BP 125/68; PULSE 66
--- NOTE | 2021-05-23 14:06 | PCM.PN ---
- General Info Date of Service: 05/21/21 Admission Dx/Problem (Free Text): Admission Diagnosis/Problem Admission Diagnosis/Problem Hypoxia Subjective Update: Sid is overall stable, continuing to require 5 L of oxygen via nasal cannula, but has neither improved nor worsened with his respiratory rate, work of breathing, or overall condition. He states that he is feeling well, is quite short of breath if he ever takes off the oxygen, but if he relaxes he feels be tter. He reports no fevers or chills. Nursing reports no fever overnight. He was initially going to be transferred to [place] yesterday but that was canceled as his condition had so significantly improved. He is getting his second day of remdesivir treatment today - Patient Data Vitals - Most Recent: Last Vital Signs Temp 98.2 F 05/23/21 12:00 Pulse 66 05/23/21 12:00 Resp 23 H 05/23/21 12:00 BP 125/68 05/23/21 12:00 Pulse Ox 86 L 05/23/21 11:41 Weight - Most Recent: 287 lb 1.6 oz I&O - Last 24 Hours: Intake & Output 05/22/21 05/23/21 05/23/21 22:59 06:59 14:59 Intake Total 800 200 480 Balance 800 200 480 Lab Results Last 24 Hours: Laboratory Results - last 24 hr 05/22/21 05/22/21 05/23/21 Range/Units 17:15 21:08 06:15 WBC 10.9 H (5.0-10.0) 10^3/uL RBC 5.65 (4.6-6.2) 10^6/uL Hgb 16.9 (14.0-18.0) g/dL Hct 46.9 (40.0-54.0) % MCV 83.0 (80-100) fL MCH 29.9 (27.0-34.0) pg MCHC 36.0 H (33.0-35.0) g/dL Plt Count 268 (150-450) 10^3/uL Neut % (Auto) 66.0 (42.2-75.2) % Lymph % (Auto) 22.5 (20.5-50.1) % Milam % (Auto) 11.1 H (2-8) % Eos % (Auto) 0.2 L (1.0-3.0) % Baso % (Auto) 0.2 (0.0-1.0) % Sodium (136-145) mmol/L Potassium (3.5-5.1) mmol/L Chloride (98-107) mmol/L Carbon Dioxide (21-32) mmol/L Anion Gap (7-13) mEq/L BUN (7-18) mg/dL Creatinine (0.70-1.30) mg/dL Est Cr Clr Drug Dosing mL/min Estimated GFR (MDRD) BUN/Creatinine Ratio (No establ ref range) Glucose (70-99) mg/dL POC Glucose 218 H 268 H (70-99) mg/dL Calcium (8.5-10.1) mg/dL Total Bilirubin (0.2-1.0) mg/dL AST (15-37) U/L ALT (16-63) U/L Alkaline Phosphatase (46-116) U/L Total Protein (6.4-8.2) g/dL Albumin (3.4-5.0) g/dL Globulin Albumin/Globulin Ratio 05/23/21 05/23/21 05/23/21 Range/Units 06:15 07:25 11:04 WBC (5.0-10.0) 10^3/uL RBC (4.6-6.2) 10^6/uL Hgb (14.0-18.0) g/dL Hct (40.0-54.0) % MCV (80-100) fL MCH (27.0-34.0) pg MCHC (33.0-35.0) g/dL Plt Count (150-450) 10^3/uL Neut % (Auto) (42.2-75.2) % Lymph % (Auto) (20.5-50.1) % Milam % (Auto) (2-8) % Eos % (Auto) (1.0-3.0) % Baso % (Auto) (0.0-1.0) % Sodium 141 (136-145) mmol/L Potassium 4.3 (3.5-5.1) mmol/L Chloride 104 (98-107) mmol/L Carbon Dioxide 28 (21-32) mmol/L Anion Gap 13.3 H (7-13) mEq/L BUN 22 H (7-18) mg/dL Creatinine 1.05 (0.70-1.30) mg/dL Est Cr Clr Drug Dosing 91.65 mL/min Estimated GFR (MDRD) > 60 BUN/Creatinine Ratio 21.0 (No establ ref range) Glucose 160 H (70-99) mg/dL POC Glucose 149 H 243 H (70-99) mg/dL Calcium 8.1 L (8.5-10.1) mg/dL Total Bilirubin 1.0 (0.2-1.0) mg/dL AST 15 (15-37) U/L ALT 34 (16-63) U/L Alkaline Phosphatase 66 (46-116) U/L Total Protein 6.4 (6.4-8.2) g/dL Albumin 3.0 L (3.4-5.0) g/dL Globulin 3.4 Albumin/Globulin Ratio 0.88 [place] Results Last 24 Hours: Microbiology 05/19/21 22:45 Aerobic Blood Culture - Preliminary Blood - Venous NO GROWTH AFTER 3 DAYS Anaerobic Blood Culture - Final 05/19/21 22:55 Aerobic Blood Culture - Preliminary Blood - Venous - Lab Draw NO GROWTH AFTER 3 DAYS Anaerobic Blood Culture - Preliminary NO GROWTH AFTER 3 DAYS Med Orders - Current: Current Medications Acetaminophen (Acetaminophen 325 Mg Tab) 650 mg PO Q4H PRN PRN Reason: Pain (Mild 1-3)/fever Albuterol/Ipratropium (Albuterol/Ipratropium 3.0-0.5 Mg/3 Ml Neb Soln) 3 ml NEB Q4H PRN PRN Reason: shortness of breath/wheezing Amlodipine Besylate (Amlodipine 5 Mg Tab) 10 mg PO BEDTIME [facility] Last Admin: 05/22/21 21:01 Dose: 10 mg Documented by: Ascorbic Acid (Ascorbic Acid 500 Mg Tab) 1,000 mg PO DAILY [facility] Last Admin: 05/23/21 09:13 Dose: 1,000 mg Documented by: Atorvastatin Calcium (Atorvastatin 20 Mg Tab) 20 mg PO DAILY [facility] Last Admin: 05/23/21 09:12 Dose: 20 mg Documented by: Bisacodyl (Bisacodyl 5 Mg Tab) 5 mg PO DAILY PRN PRN Reason: Constipation Dexamethasone (Dexamethasone 4 Mg/Ml Sdv) 6 mg IVPUSH DAILY [facility] Stop: 05/29/21 09:01 Last Admin: 05/23/21 09:12 Dose: 6 mg Documented by: Dextrose/Water (50% Dextrose In Water 50 Ml Syringe) 50 ml IVPUSH Q15M PRN PRN Reason: Hypoglycemia Docusate Sodium (Docusate Sodium 100 Mg Cap) 100 mg PO BID PRN PRN Reason: Constipation Enoxaparin Sodium (Enoxaparin 40 Mg/0.4 Ml Syringe) 40 mg SUBCUT DAILY [facility] Last Admin: 05/23/21 09:15 Dose: 40 mg Documented by: Glimepiride (Glimepiride 2 Mg Tab) 4 mg PO WITHBREAKFAST [facility] Last Admin: 05/23/21 09:13 Dose: 4 mg Documented by: Glucagon (Glucagon,Human Recombinant 1 Mg Vial) 1 mg IM Q15M PRN PRN Reason: Hypoglycemia Remdesivir 100 mg/ Sodium (Chloride) 100 mls @ 100 mls/hr IV Q24H [facility] Stop: 05/24/21 09:59 Last Infusion: 05/23/21 10:20 Dose: Infused Documented by: Piperacillin Sod/Tazobactam (Sod 3.375 gm/ Sodium Chloride) 100 mls @ 200 mls/hr IV Q6H [facility] Last Infusion: 05/23/21 11:05 Dose: Infused Documented by: Insulin Human Lispro (Insulin Lispro 100 Units/Ml 3 Ml Vial) 0 unit SUBCUT WITHMEALSANDBED [facility]; Protocol Last Admin: 05/23/21 12:30 Dose: 2 unit Documented by: Ondansetron HCl (Ondansetron 4 Mg/2 Ml Sdv) 4 mg IVPUSH Q6H PRN PRN Reason: Nausea/Vomiting Sodium Chloride (Sodium Chloride 0.9% 10 Ml Syringe) 10 ml FLUSH ASDIRECTED PRN PRN Reason: Keep Vein Open Last Admin: 05/22/21 04:08 Dose: 10 ml Documented by: Discontinued Medications Remdesivir 200 mg/ Sodium (Chloride) 250 mls @ 250 mls/hr IV ONETIME ONE Stop: 05/20/21 03:58 Last Admin: 05/20/21 03:32 Dose: 250 mls/hr Documented by: Piperacillin Sod/Tazobactam (Sod 3.375 gm/ Sodium Chloride) 100 mls @ 200 mls/hr IV Q6H [facility] Last Admin: 05/21/21 13:04 Dose: Not Given Documented by: Tocilizumab 800 mg/ Sodium (Chloride) 140 mls @ 140 mls/hr IV ONETIME ONE Stop: 05/20/21 04:04 Last Admin: 05/20/21 11:04 Dose: Not Given Documented by: Tocilizumab 800 mg/ Sodium (Chloride) 140 mls @ 140 mls/hr IV ONETIME ONE Stop: 05/20/21 09:59 Last Admin: 05/20/21 11:05 Dose: Not Given Documented by: Tocilizumab 800 mg/ Sodium (Chloride) 140 mls @ 140 mls/hr IV ONETIME ONE Stop: 05/20/21 11:29 Tocilizumab 800 mg/ Sodium (Chloride) 100 mls @ 100 mls/hr IV ONETIME ONE Stop: 05/20/21 11:14 Last Admin: 05/20/21 12:05 Dose: 100 mls/hr Documented by: - Exam Physical Findings Comments:: General: Sid is a 40-year-old man in no acute distress. He is showing no signs of respiratory distress, no tachypnea or accessory muscle use Oropharynx is clear, mucous membranes are moist Heart: Regular rate and rhythm, no murmurs Lungs: Significant crackles and rhonchi in both lung triana, consistent with COVID-19 pneumonitis - Patient Data Lab Results Last 24 hrs: Laboratory Results - last 24 hr 05/22/21 05/22/21 05/23/21 Range/Units 17:15 21:08 06:15 WBC 10.9 H (5.0-10.0) 10^3/uL RBC 5.65 (4.6-6.2) 10^6/uL Hgb 16.9 (14.0-18.0) g/dL Hct 46.9 (40.0-54.0) % MCV 83.0 (80-100) fL MCH 29.9 (27.0-34.0) pg MCHC 36.0 H (33.0-35.0) g/dL Plt Count 268 (150-450) 10^3/uL Neut % (Auto) 66.0 (42.2-75.2) % Lymph % (Auto) 22.5 (20.5-50.1) % Milam % (Auto) 11.1 H (2-8) % Eos % (Auto) 0.2 L (1.0-3.0) % Baso % (Auto) 0.2 (0.0-1.0) % Sodium (136-145) mmol/L Potassium (3.5-5.1) mmol/L Chloride (98-107) mmol/L Carbon Dioxide (21-32) mmol/L Anion Gap (7-13) mEq/L BUN (7-18) mg/dL Creatinine (0.70-1.30) mg/dL Est Cr Clr Drug Dosing mL/min Estimated GFR (MDRD) BUN/Creatinine Ratio (No establ ref range) Glucose (70-99) mg/dL POC Glucose 218 H 268 H (70-99) mg/dL Calcium (8.5-10.1) mg/dL Total Bilirubin (0.2-1.0) mg/dL AST (15-37) U/L ALT (16-63) U/L Alkaline Phosphatase (46-116) U/L Total Protein (6.4-8.2) g/dL Albumin (3.4-5.0) g/dL Globulin Albumin/Globulin Ratio 05/23/21 05/23/21 05/23/21 Range/Units 06:15 07:25 11:04 WBC (5.0-10.0) 10^3/uL RBC (4.6-6.2) 10^6/uL Hgb (14.0-18.0) g/dL Hct (40.0-54.0) % MCV (80-100) fL MCH (27.0-34.0) pg MCHC (33.0-35.0) g/dL Plt Count (150-450) 10^3/uL Neut % (Auto) (42.2-75.2) % Lymph % (Auto) (20.5-50.1) % Milam % (Auto) (2-8) % Eos % (Auto) (1.0-3.0) % Baso % (Auto) (0.0-1.0) % Sodium 141 (136-145) mmol/L Potassium 4.3 (3.5-5.1) mmol/L Chloride 104 (98-107) mmol/L Carbon Dioxide 28 (21-32) mmol/L Anion Gap 13.3 H (7-13) mEq/L BUN 22 H (7-18) mg/dL Creatinine 1.05 (0.70-1.30) mg/dL Est Cr Clr Drug Dosing 91.65 mL/min Estimated GFR (MDRD) > 60 BUN/Creatinine Ratio 21.0 (No establ ref range) Glucose 160 H (70-99) mg/dL POC Glucose 149 H 243 H (70-99) mg/dL Calcium 8.1 L (8.5-10.1) mg/dL Total Bilirubin 1.0 (0.2-1.0) mg/dL AST 15 (15-37) U/L ALT 34 (16-63) U/L Alkaline Phosphatase 66 (46-116) U/L Total Protein 6.4 (6.4-8.2) g/dL Albumin 3.0 L (3.4-5.0) g/dL Globulin 3.4 Albumin/Globulin Ratio 0.88 Result Diagrams: 05/23/21 06:15 05/23/21 06:15 [place] Results Last 24 hrs: Microbiology 05/19/21 22:45 Aerobic Blood Culture - Preliminary Blood - Venous NO GROWTH AFTER 3 DAYS Anaerobic Blood Culture - Final 05/19/21 22:55 Aerobic Blood Culture - Preliminary Blood - Venous - Lab Draw NO GROWTH AFTER 3 DAYS Anaerobic Blood Culture - Preliminary NO GROWTH AFTER 3 DAYS Sepsis Event Note - Evaluation Sepsis Screening Result: No Definite Risk - Focused Exam Vital Signs: Vital Signs Temp Pulse Resp BP BP Pulse Ox Pulse Ox 05/23/21 12:00 98.2 F 66 23 H 125/68 05/23/21 11:41 32 H 86 L 05/23/21 08:00 94 L 05/23/21 07:38 97.5 F 65 23 H 130/82 94 L 05/23/21 04:00 97.8 F 60 22 H 126/68 93 L - Problem List & Annotations (1) Pneumonia due to COVID-19 virus SNOMED Code(s): 337937525273597716 Code(s): U07.1 - COVID-19; J12.82 - PNEUMONIA DUE TO CORONAVIRUS DISEASE 2019 Status: Acute Current Visit: No - Problem List Review Problem List Initiated/Reviewed/Updated: Yes - My Orders Last 24 Hours: My Active Orders 05/23/21 12:51 Ready for Discharge [RC] PER UNIT ROUTINE - Assessment Assessment:: Assessment: 1. 40-year-old man with severe COVID-19 pneumonitis 2. Diabetes mellitus type 2 3. Current history of both obesity and sleep apnea Plan: 1. We will continue the remdesivir treatment, completing a total of 5 days 2. He has already received the monoclonal antibody inpatient 3. If he begins to have worsening work of breathing, we will switch him over to high flow nasal cannula sooner rather than later. 4. [place] for discharge will be made on a daily basis. At this point, I think he would benefit from staying for more remdesivir infusion 5. VTE prophylaxis: His D-dimer has remained around 100, so we will continue the prophylactic dosing of Lovenox at this time. If his D-dimer significantly elevates, we may switch over to the treatment dosing
--- NOTE | 2021-05-23 14:07 | PCM.PN ---
- General Info Date of Service: 05/22/21 Admission Dx/Problem (Free Text): Admission Diagnosis/Problem Admission Diagnosis/Problem Hypoxia Subjective Update: Sid continues to do well. He has no concerns or complaints at this time. They have not been able to wean him down any further on his oxygen, he remains at 5 L of oxygen via nasal cannula. - Patient Data Vitals - Most Recent: Last Vital Signs Temp 98.2 F 05/23/21 12:00 Pulse 66 05/23/21 12:00 Resp 23 H 05/23/21 12:00 BP 125/68 05/23/21 12:00 Pulse Ox 86 L 05/23/21 11:41 Weight - Most Recent: 287 lb 1.6 oz I&O - Last 24 Hours: Intake & Output 05/22/21 05/23/21 05/23/21 22:59 06:59 14:59 Intake Total 800 200 480 Balance 800 200 480 Lab Results Last 24 Hours: Laboratory Results - last 24 hr 05/22/21 05/22/21 05/23/21 Range/Units 17:15 21:08 06:15 WBC 10.9 H (5.0-10.0) 10^3/uL RBC 5.65 (4.6-6.2) 10^6/uL Hgb 16.9 (14.0-18.0) g/dL Hct 46.9 (40.0-54.0) % MCV 83.0 (80-100) fL MCH 29.9 (27.0-34.0) pg MCHC 36.0 H (33.0-35.0) g/dL Plt Count 268 (150-450) 10^3/uL Neut % (Auto) 66.0 (42.2-75.2) % Lymph % (Auto) 22.5 (20.5-50.1) % Kay % (Auto) 11.1 H (2-8) % Eos % (Auto) 0.2 L (1.0-3.0) % Baso % (Auto) 0.2 (0.0-1.0) % Sodium (136-145) mmol/L Potassium (3.5-5.1) mmol/L Chloride (98-107) mmol/L Carbon Dioxide (21-32) mmol/L Anion Gap (7-13) mEq/L BUN (7-18) mg/dL Creatinine (0.70-1.30) mg/dL Est Cr Clr Drug Dosing mL/min Estimated GFR (MDRD) BUN/Creatinine Ratio (No establ ref range) Glucose (70-99) mg/dL POC Glucose 218 H 268 H (70-99) mg/dL Calcium (8.5-10.1) mg/dL Total Bilirubin (0.2-1.0) mg/dL AST (15-37) U/L ALT (16-63) U/L Alkaline Phosphatase (46-116) U/L Total Protein (6.4-8.2) g/dL Albumin (3.4-5.0) g/dL Globulin Albumin/Globulin Ratio 05/23/21 05/23/21 05/23/21 Range/Units 06:15 07:25 11:04 WBC (5.0-10.0) 10^3/uL RBC (4.6-6.2) 10^6/uL Hgb (14.0-18.0) g/dL Hct (40.0-54.0) % MCV (80-100) fL MCH (27.0-34.0) pg MCHC (33.0-35.0) g/dL Plt Count (150-450) 10^3/uL Neut % (Auto) (42.2-75.2) % Lymph % (Auto) (20.5-50.1) % Kay % (Auto) (2-8) % Eos % (Auto) (1.0-3.0) % Baso % (Auto) (0.0-1.0) % Sodium 141 (136-145) mmol/L Potassium 4.3 (3.5-5.1) mmol/L Chloride 104 (98-107) mmol/L Carbon Dioxide 28 (21-32) mmol/L Anion Gap 13.3 H (7-13) mEq/L BUN 22 H (7-18) mg/dL Creatinine 1.05 (0.70-1.30) mg/dL Est Cr Clr Drug Dosing 91.65 mL/min Estimated GFR (MDRD) > 60 BUN/Creatinine Ratio 21.0 (No establ ref range) Glucose 160 H (70-99) mg/dL POC Glucose 149 H 243 H (70-99) mg/dL Calcium 8.1 L (8.5-10.1) mg/dL Total Bilirubin 1.0 (0.2-1.0) mg/dL AST 15 (15-37) U/L ALT 34 (16-63) U/L Alkaline Phosphatase 66 (46-116) U/L Total Protein 6.4 (6.4-8.2) g/dL Albumin 3.0 L (3.4-5.0) g/dL Globulin 3.4 Albumin/Globulin Ratio 0.88 [place] Results Last 24 Hours: Microbiology 05/19/21 22:45 Aerobic Blood Culture - Preliminary Blood - Venous NO GROWTH AFTER 3 DAYS Anaerobic Blood Culture - Final 05/19/21 22:55 Aerobic Blood Culture - Preliminary Blood - Venous - Lab Draw NO GROWTH AFTER 3 DAYS Anaerobic Blood Culture - Preliminary NO GROWTH AFTER 3 DAYS Med Orders - Current: Current Medications Acetaminophen (Acetaminophen 325 Mg Tab) 650 mg PO Q4H PRN PRN Reason: Pain (Mild 1-3)/fever Albuterol/Ipratropium (Albuterol/Ipratropium 3.0-0.5 Mg/3 Ml Neb Soln) 3 ml NEB Q4H PRN PRN Reason: shortness of breath/wheezing Amlodipine Besylate (Amlodipine 5 Mg Tab) 10 mg PO BEDTIME [facility] Last Admin: 05/22/21 21:01 Dose: 10 mg Documented by: Ascorbic Acid (Ascorbic Acid 500 Mg Tab) 1,000 mg PO DAILY [facility] Last Admin: 05/23/21 09:13 Dose: 1,000 mg Documented by: Atorvastatin Calcium (Atorvastatin 20 Mg Tab) 20 mg PO DAILY [facility] Last Admin: 05/23/21 09:12 Dose: 20 mg Documented by: Bisacodyl (Bisacodyl 5 Mg Tab) 5 mg PO DAILY PRN PRN Reason: Constipation Dexamethasone (Dexamethasone 4 Mg/Ml Sdv) 6 mg IVPUSH DAILY [facility] Stop: 05/29/21 09:01 Last Admin: 05/23/21 09:12 Dose: 6 mg Documented by: Dextrose/Water (50% Dextrose In Water 50 Ml Syringe) 50 ml IVPUSH Q15M PRN PRN Reason: Hypoglycemia Docusate Sodium (Docusate Sodium 100 Mg Cap) 100 mg PO BID PRN PRN Reason: Constipation Enoxaparin Sodium (Enoxaparin 40 Mg/0.4 Ml Syringe) 40 mg SUBCUT DAILY [facility] Last Admin: 05/23/21 09:15 Dose: 40 mg Documented by: Glimepiride (Glimepiride 2 Mg Tab) 4 mg PO WITHBREAKFAST [facility] Last Admin: 05/23/21 09:13 Dose: 4 mg Documented by: Glucagon (Glucagon,Human Recombinant 1 Mg Vial) 1 mg IM Q15M PRN PRN Reason: Hypoglycemia Remdesivir 100 mg/ Sodium (Chloride) 100 mls @ 100 mls/hr IV Q24H [facility] Stop: 05/24/21 09:59 Last Infusion: 05/23/21 10:20 Dose: Infused Documented by: Piperacillin Sod/Tazobactam (Sod 3.375 gm/ Sodium Chloride) 100 mls @ 200 mls/hr IV Q6H [facility] Last Infusion: 05/23/21 11:05 Dose: Infused Documented by: Insulin Human Lispro (Insulin Lispro 100 Units/Ml 3 Ml Vial) 0 unit SUBCUT WITHMEALSANDBED [facility]; Protocol Last Admin: 05/23/21 12:30 Dose: 2 unit Documented by: Ondansetron HCl (Ondansetron 4 Mg/2 Ml Sdv) 4 mg IVPUSH Q6H PRN PRN Reason: Nausea/Vomiting Sodium Chloride (Sodium Chloride 0.9% 10 Ml Syringe) 10 ml FLUSH ASDIRECTED PRN PRN Reason: Keep Vein Open Last Admin: 05/22/21 04:08 Dose: 10 ml Documented by: Discontinued Medications Remdesivir 200 mg/ Sodium (Chloride) 250 mls @ 250 mls/hr IV ONETIME ONE Stop: 05/20/21 03:58 Last Admin: 05/20/21 03:32 Dose: 250 mls/hr Documented by: Piperacillin Sod/Tazobactam (Sod 3.375 gm/ Sodium Chloride) 100 mls @ 200 mls/h r IV Q6H [facility] Last Admin: 05/21/21 13:04 Dose: Not Given Documented by: Tocilizumab 800 mg/ Sodium (Chloride) 140 mls @ 140 mls/hr IV ONETIME ONE Stop: 05/20/21 04:04 Last Admin: 05/20/21 11:04 Dose: Not Given Documented by: Tocilizumab 800 mg/ Sodium (Chloride) 140 mls @ 140 mls/hr IV ONETIME ONE Stop: 05/20/21 09:59 Last Admin: 05/20/21 11:05 Dose: Not Given Documented by: Tocilizumab 800 mg/ Sodium (Chloride) 140 mls @ 140 mls/hr IV ONETIME ONE Stop: 05/20/21 11:29 Tocilizumab 800 mg/ Sodium (Chloride) 100 mls @ 100 mls/hr IV ONETIME ONE Stop: 05/20/21 11:14 Last Admin: 05/20/21 12:05 Dose: 100 mls/hr Documented by: - Exam Physical Findings Comments:: General: Sid is a 40-year-old man in no acute distress. He is showing no signs of respiratory distress, no tachypnea or accessory muscle use Oropharynx is clear, mucous membranes are moist Heart: Regular rate and rhythm, no murmurs Lungs: Significant crackles and rhonchi in both lung [place]ana, consistent with COVID-19 pneumonitis - Patient Data Lab Results Last 24 hrs: Laboratory Results - last 24 hr 05/22/21 05/22/21 05/23/21 Range/Units 17:15 21:08 06:15 WBC 10.9 H (5.0-10.0) 10^3/uL RBC 5.65 (4.6-6.2) 10^6/uL Hgb 16.9 (14.0-18.0) g/dL Hct 46.9 (40.0-54.0) % MCV 83.0 (80-100) fL MCH 29.9 (27.0-34.0) pg MCHC 36.0 H (33.0-35.0) g/dL Plt Count 268 (150-450) 10^3/uL Neut % (Auto) 66.0 (42.2-75.2) % Lymph % (Auto) 22.5 (20.5-50.1) % Kay % (Auto) 11.1 H (2-8) % Eos % (Auto) 0.2 L (1.0-3.0) % Baso % (Auto) 0.2 (0.0-1.0) % Sodium (136-145) mmol/L Potassium (3.5-5.1) mmol/L Chloride (98-107) mmol/L Carbon Dioxide (21-32) mmol/L Anion Gap (7-13) mEq/L BUN (7-18) mg/dL Creatinine (0.70-1.30) mg/dL Est Cr Clr Drug Dosing mL/min Estimated GFR (MDRD) BUN/Creatinine Ratio (No establ ref range) Glucose (70-99) mg/dL POC Glucose 218 H 268 H (70-99) mg/dL Calcium (8.5-10.1) mg/dL Total Bilirubin (0.2-1.0) mg/dL AST (15-37) U/L ALT (16-63) U/L Alkaline Phosphatase (46-116) U/L Total Protein (6.4-8.2) g/dL Albumin (3.4-5.0) g/dL Globulin Albumin/Globulin Ratio 05/23/21 05/23/21 05/23/21 Range/Units 06:15 07:25 11:04 WBC (5.0-10.0) 10^3/uL RBC (4.6-6.2) 10^6/uL Hgb (14.0-18.0) g/dL Hct (40.0-54.0) % MCV (80-100) fL MCH (27.0-34.0) pg MCHC (33.0-35.0) g/dL Plt Count (150-450) 10^3/uL Neut % (Auto) (42.2-75.2) % Lymph % (Auto) (20.5-50.1) % Kay % (Auto) (2-8) % Eos % (Auto) (1.0-3.0) % Baso % (Auto) (0.0-1.0) % Sodium 141 (136-145) mmol/L Potassium 4.3 (3.5-5.1) mmol/L Chloride 104 (98-107) mmol/L Carbon Dioxide 28 (21-32) mmol/L Anion Gap 13.3 H (7-13) mEq/L BUN 22 H (7-18) mg/dL Creatinine 1.05 (0.70-1.30) mg/dL Est Cr Clr Drug Dosing 91.65 mL/min Estimated GFR (MDRD) > 60 BUN/Creatinine Ratio 21.0 (No establ ref range) Glucose 160 H (70-99) mg/dL POC Glucose 149 H 243 H (70-99) mg/dL Calcium 8.1 L (8.5-10.1) mg/dL Total Bilirubin 1.0 (0.2-1.0) mg/dL AST 15 (15-37) U/L ALT 34 (16-63) U/L Alkaline Phosphatase 66 (46-116) U/L Total Protein 6.4 (6.4-8.2) g/dL Albumin 3.0 L (3.4-5.0) g/dL Globulin 3.4 Albumin/Globulin Ratio 0.88 Result Diagrams: 05/23/21 06:15 05/23/21 06:15 [place] Results Last 24 hrs: Microbiology 05/19/21 22:45 Aerobic Blood Culture - Preliminary Blood - Venous NO GROWTH AFTER 3 DAYS Anaerobic Blood Culture - Final 05/19/21 22:55 Aerobic Blood Culture - Preliminary Blood - Venous - Lab Draw NO GROWTH AFTER 3 DAYS Anaerobic Blood Culture - Preliminary NO GROWTH AFTER 3 DAYS Sepsis Event Note - Evaluation Sepsis Screening Result: No Definite Risk - Focused Exam Vital Signs: Vital Signs Temp Pulse Resp BP BP Pulse Ox Pulse Ox 05/23/21 12:00 98.2 F 66 23 H 125/68 05/23/21 11:41 32 H 86 L 05/23/21 08:00 94 L 05/23/21 07:38 97.5 F 65 23 H 130/82 94 L 05/23/21 04:00 97.8 F 60 22 H 126/68 93 L - Problem List & Annotations (1) Pneumonia due to COVID-19 virus SNOMED Code(s): 948243123283242209 Code(s): U07.1 - COVID-19; J12.82 - PNEUMONIA DUE TO CORONAVIRUS DISEASE 2019 Status: Acute Current Visit: No - Problem List Review Problem List Initiated/Reviewed/Updated: Yes - My Orders Last 24 Hours: My Active Orders 05/23/21 12:51 Ready for Discharge [RC] PER UNIT ROUTINE - Assessment Assessment:: Assessment: 1. 40-year-old man with severe COVID-19 pneumonitis 2. Diabetes mellitus type 2 3. Current history of both obesity and sleep apnea Plan: 1. We will continue the remdesivir treatment, completing a total of 5 days 2. He has already received the monoclonal antibody inpatient 3. If he begins to have worsening work of breathing, we will switch him over to high flow nasal cannula sooner rather than later. 4. [place] for discharge will be made on a daily basis. At this point, I think he would benefit from staying for more remdesivir infusion 5. VTE prophylaxis: His D-dimer has remained around 100, so we will continue the prophylactic dosing of Lovenox at this time. If his D-dimer significantly elevates, we may switch over to the treatment dosing
== END 2021-05-23 15:35 | disposition home or self-care (01) | DRG 137 ==
LOC: DL.ED 22:59 → DL.MS 05-20 00:37 → DL.ED 05-20 00:49
PROVIDERS: ADMIT Internal Medicine; ATTEND Internal Medicine
PROC: 8E0ZXY6 Isolation (ICD-10-PCS; principal; 2021-05-20)
PROC: 3E0333Z Introduction of Anti-inflammatory into Peripheral Vein, Percutaneous Approach (ICD-10-PCS; 2021-05-20)
PROC: XW043E5 Introduction of Remdesivir Anti-infective into Central Vein, Percutaneous Approach, New Technology Group 5 (ICD-10-PCS; 2021-05-20)
PROC: XW033H5 Introduction of Tocilizumab into Peripheral Vein, Percutaneous Approach, New Technology Group 5 (ICD-10-PCS; 2021-05-20)
DX: U07.1 COVID-19 (principal); J12.82 Pneumonia due to coronavirus disease 2019; Z79.84 Long term (current) use of oral hypoglycemic drugs; Z79.899 Other long term (current) drug therapy; E78.00 Pure hypercholesterolemia, unspecified; I10 Essential (primary) hypertension; E11.42 Type 2 diabetes mellitus with diabetic polyneuropathy; E66.9 Obesity, unspecified; Z68.41 Body mass index [BMI] 40.0-44.9, adult; Z98.890 Other specified postprocedural states; Z28.82 Immunization not carried out because of caregiver refusal
CPT/HCPCS: 36415; 71045; 71250; 80053; 82728; 82947; 83605; 83615; 84145; 84484; 85025; 85379; 86140; 87040; 93005; 99285-25; A9270-GY; J1100; J1650; J1815-GY; J2543; J7050; Q0249

== ENCOUNTER 2023-05-19 08:43 | Emergency (ER) | payer BC ==
[2023-05-19] MEDS ORDERED: Sodium Chloride 0.9% 10 ML Syringe FLUSH PRN (08:58)
[2023-05-19] MEDS ORDERED: Aspirin 325 MG Tab PO ONE (09:00)
[2023-05-19] MEDS ORDERED: Morphine 2 MG/ML SYRINGE IVPUSH ONE (09:00)
[2023-05-19 09:08] LABS: BASOPHILS PERCENT AUTO 0.4 % (0.0-1.0); EOSINOPHILS PERCENT AUTO 0.9 % (1.0-3.0); HEMATOCRIT 46.8 % (40.0-54.0); HEMOGLOBIN 16.9 g/dL (14.0-18.0); LYMPHOCYTES PERCENT AUTO 20.8 % (20.5-50.1); MEAN CORPUSCULAR HEMOGLOBIN 30.3 pg (27.0-34.0); MEAN CORPUSCULAR HGB CONC 36.1 g/dL (33.0-35.0); MEAN CORPUSCULAR VOLUME 83.9 fL (80-100); MONOCYTES PERCENT AUTO 5.3 % (2-8); NEUTROPHILS PERCENT AUTO 72.6 % (42.2-75.2); PLATELET COUNT,PLT 286 10^3/uL (150-450); RED BLOOD CELL COUNT 5.58 10^6/uL (4.6-6.2); WHITE BLOOD CELL COUNT,WBC 11.5 10^3/uL (5.0-10.0)
[2023-05-19] MEDS ORDERED: Aspirin 81 MG Tab.Chew ONE (09:08)
[2023-05-19] MEDS ORDERED: Aspirin 81 MG Tab.Chew PO ONE (09:17)
[2023-05-19 09:28] VITALS: BP 139/82; PULSE 69
[2023-05-19 09:30] LABS: A/G RATIO 1.1; ALBUMIN 3.8 g/dL (3.4-5.0); ANION GAP 13.7 mEq/L (7-13); BILIRUBIN TOTAL 0.7 mg/dL (0.2-1.0); CALCIUM 9.4 mg/dL (8.5-10.1); CREATININE 1.08 mg/dL (0.70-1.30); EST CRCL DRUG DOSING (CG) 87.28 mL/min; POTASSIUM,K 3.7 mmol/L (3.5-5.1); PROTEIN TOTAL,TP 7.3 g/dL (6.4-8.2)
[2023-05-19 09:32] LABS: LACTIC ACID 2.4 mmol/L (0.4-2.0)
[2023-05-19 09:45] LABS: CORONAVIRUS COVID-19 NAA NEGATIVE (NEGATIVE); INFLUENZA A NAA NEGATIVE (NEGATIVE); INFLUENZA B NAA NEGATIVE (NEGATIVE)
[2023-05-19] MEDS ORDERED: cefTRIAXone 1 GM Vial IVPUSH ONE (10:30)
[2023-05-19] MEDS ORDERED: Lidocaine 1% 5 ML VIAL ONE (11:01)
[2023-05-19] MEDS ORDERED: cefTRIAXone 1 GM Vial ONE (11:01)
[2023-05-19] MEDS ORDERED: cefTRIAXone 1 GM, Lidocaine 1% 2.1 ML IM ONE ×2 (11:08)
== END 2023-05-19 11:11 | disposition home or self-care (01) ==
LOC: DL.ED 08:43
DX: J01.00 Acute maxillary sinusitis, unspecified (principal); R07.9 Chest pain, unspecified; E78.00 Pure hypercholesterolemia, unspecified; I10 Essential (primary) hypertension; E11.40 Type 2 diabetes mellitus with diabetic neuropathy, unspecified; E66.9 Obesity, unspecified; Z68.41 Body mass index [BMI] 40.0-44.9, adult; Z20.822 Contact with and (suspected) exposure to COVID-19; Z86.16 Personal history of COVID-19; Z79.84 Long term (current) use of oral hypoglycemic drugs; Z79.899 Other long term (current) drug therapy
CPT/HCPCS: 0240U; 36415; 71045; 80053; 83605; 84484; 85025; 93005; 96372; 96374; 99285; A9270; J0696; J2270; J3490

== ENCOUNTER 2023-11-07 12:47 | Emergency (ER) | payer BC ==
[2023-11-07] MEDS: Ondansetron 4 MG/2 ML SDV IVPUSH ONE (13:38)
[2023-11-07] MEDS: Sodium Chloride 0.9% 1,000 ML IV ONE ×2 (13:38→14:40)
[2023-11-07 13:44] LABS: BASOPHILS PERCENT AUTO 0.3 % (0.0-1.0); EOSINOPHILS PERCENT AUTO 0.2 % (1.0-3.0); HEMATOCRIT 51.4 % (40.0-54.0); HEMOGLOBIN 18.8 g/dL (14.0-18.0); LYMPHOCYTES PERCENT AUTO 16.2 % (20.5-50.1); MEAN CORPUSCULAR HEMOGLOBIN 29.8 pg (27.0-34.0); MEAN CORPUSCULAR HGB CONC 36.6 g/dL (33.0-35.0); MEAN CORPUSCULAR VOLUME 81.6 fL (80-100); MONOCYTES PERCENT AUTO 5.4 % (2-8); NEUTROPHILS PERCENT AUTO 77.9 % (42.2-75.2); PLATELET COUNT,PLT 321 10^3/uL (150-450); WHITE BLOOD CELL COUNT,WBC 15.5 10^3/uL (5.0-10.0)
[2023-11-07] MEDS: Ondansetron 4 MG/2 ML SDV ONE (13:49)
[2023-11-07 13:57] LABS: ANION GAP 17.6 mEq/L (7-13); BLOOD UREA NITROGEN,BUN 27 mg/dL (7-18); CALCIUM 9.7 mg/dL (8.5-10.1); CARBON DIOXIDE,CO2 26 mmol/L (21-32); CHLORIDE,CL 95 mmol/L (98-107); CREATININE 1.24 mg/dL (0.70-1.30); GLUCOSE RANDOM 293 mg/dL (70-99); POTASSIUM,K 3.6 mmol/L (3.5-5.1); SODIUM,NA 135 mmol/L (136-145)
[2023-11-07 13:59] LABS: ESTIMATED GFR 73 mL/min (>=60)
[2023-11-07 15:05] LABS: APPEARANCE,URINE CLEAR (CLEAR); BILIRUBIN,URINE NEGATIVE (NEGATIVE); COLOR,URINE YELLOW (YELLOW); GLUCOSE,URINE 500 (NEGATIVE); KETONES,URINE 40 (NEGATIVE); LEUKOCYTE ESTERASE,URINE NEGATIVE (NEGATIVE); NITRITE,URINE NEGATIVE (NEGATIVE); OCCULT BLOOD,URINE NEGATIVE (NEGATIVE); PH,URINE 5.5 (5.0-9.0); PROTEIN,URINE NEGATIVE (NEGATIVE); UROBILINOGEN,URINE 0.2 mg/dL (0.2-1.0)
[2023-11-07 16:31] LABS: BASOPHILS PERCENT AUTO 0.2 % (0.0-1.0); EOSINOPHILS PERCENT AUTO 0.5 % (1.0-3.0); HEMOGLOBIN 17.6 g/dL (14.0-18.0); LYMPHOCYTES PERCENT AUTO 25.7 % (20.5-50.1); MEAN CORPUSCULAR HEMOGLOBIN 30.1 pg (27.0-34.0); MEAN CORPUSCULAR HGB CONC 36.7 g/dL (33.0-35.0); MEAN CORPUSCULAR VOLUME 82.1 fL (80-100); MONOCYTES PERCENT AUTO 6.7 % (2-8); NEUTROPHILS PERCENT AUTO 66.9 % (42.2-75.2); PLATELET COUNT,PLT 279 10^3/uL (150-450); RED BLOOD CELL COUNT 5.85 10^6/uL (4.6-6.2); WHITE BLOOD CELL COUNT,WBC 14.4 10^3/uL (5.0-10.0)
[2023-11-07 16:45] LABS: ANION GAP 14.4 mEq/L (7-13); CALCIUM 8.6 mg/dL (8.5-10.1); CREATININE 1.07 mg/dL (0.70-1.30); EST CRCL DRUG DOSING (CG) 87.18 mL/min; POTASSIUM,K 3.4 mmol/L (3.5-5.1)
[2023-11-07 16:59] VITALS: BP 119/77; PULSE 82
[2023-11-07] MEDS: Take Home: Ondansetron 4 MG Tab.DIS, 5 Tab Pack PO ONE (17:11)
[2023-11-07] MEDS: Potassium Chloride 10 MEQ Tab.ER PO ONE (17:11)
== END 2023-11-07 17:14 | disposition home or self-care (01) ==
LOC: DL.ED 12:47
DX: E11.65 Type 2 diabetes mellitus with hyperglycemia (principal); E86.0 Dehydration; I10 Essential (primary) hypertension; E78.00 Pure hypercholesterolemia, unspecified; E66.9 Obesity, unspecified; Z86.16 Personal history of COVID-19; Z79.84 Long term (current) use of oral hypoglycemic drugs; Z79.51 Long term (current) use of inhaled steroids; Z79.899 Other long term (current) drug therapy; Z68.41 Body mass index [BMI] 40.0-44.9, adult
CPT/HCPCS: 36415; 80048; 81003; 82009; 82947; 83735; 85025; 96361; 96374; 99284; A9270; J2405; J7030; Q0162

== ENCOUNTER 2023-12-02 19:13 | Emergency (ER) | payer BC, OTHER ==
[2023-12-02 19:40] VITALS: BP 135/83; PULSE 92
[2023-12-02] MEDS: Ketorolac 30 MG/ML SDV IVPUSH ONE (20:02)
== END 2023-12-02 20:35 | disposition home or self-care (01) ==
LOC: DL.ED 19:13
DX: S86.911A Strain of unspecified muscle(s) and tendon(s) at lower leg level, right leg, initial encounter (principal); Z79.899 Other long term (current) drug therapy; Z79.84 Long term (current) use of oral hypoglycemic drugs; I10 Essential (primary) hypertension; E78.00 Pure hypercholesterolemia, unspecified; E11.40 Type 2 diabetes mellitus with diabetic neuropathy, unspecified; X50.1XXA Overexertion from prolonged static or awkward postures, initial encounter; Y93.89 Activity, other specified
CPT/HCPCS: 73562-RT; 96374; 99283; 99283-25; J1885